=== PATIENT | female | born 1975 | race African-American/Black ===

== ENCOUNTER 2018-09-10 01:26 | Inpatient (IN) ==
[2018-09-10] MEDS ORDERED: ACETAMINOPHEN 500 MG TABLET PO STA (01:50)
[2018-09-10] MEDS ORDERED: SODIUM CHLORIDE 0.9% 1,000 ML IV STA ×3 (01:50→02:45)
[2018-09-10 02:21] LABS: Basophils # 0.1 10*3/uL (0.0-0.2); Basophils % 0.3 % (0.0-0.8); Eosinophils % 0.1 % (0.00-10.9); Hematocrit 36.9 VOL% (35.7-47.0); Hemoglobin 11.8 GM/DL (12.0-16.0); Immature Granulocytes % 1.1 %; Immature Granulocytes Absolute 0.26 #; Lymphocytes # 2.3 10*3/uL (1.4-4.0); Mean Corpuscular Hemoglobin 28 PG (27-34); Mean Corpuscular Volume 88.3 FL (87-102); Mean Platelet Volume 11.5 FL (9.6-12.0); Monocytes # 1.8 10*3/uL (0.11-0.8); Monocytes % 7.7 % (1.7-12.7); Neutrophils # 18.6 10*3/uL (1.4-7.4); Neutrophils % 80.8 % (38.7-73.9); Platelet Count 184 T/CUMM (130-400); Red Blood Count 4.18 MC/CUMM (3.8-5.5); Red Cell Distribution Width 13.2 % (9.3-17.3)
[2018-09-10 02:41] LABS: Alanine Aminotransferase 10 U/L (13-56); Albumin 2.5 G/DL (3.4-5.0); Alkaline Phosphatase 71 U/L (45-117); Aspartate Amino Transferase 15 U/L (0-37); Blood Urea Nitrogen 10 MG/DL (7-18); Calcium 8.3 MG/DL (8.5-10.1); Glucose 344 MG/DL (74-106); Osmolality,Calculated 276.5 MOS/KG (273-304); Potassium 3.5 MMOL/L (3.5-5.1); Sodium 132 MMOL/L (136-145); Total Protein 8.3 G/DL (6.4-8.3)
[2018-09-10] MEDS ORDERED: VANCOMYCIN INJ 1,000 MG in SODIUM CHLORIDE 0.9% 250 ML IV STA (02:43)
[2018-09-10] MEDS ORDERED: CEFEPIME 2,000 MG in SODIUM CHLORIDE 0.9% 100 ML IV STA (02:43)
[2018-09-10] MEDS ORDERED: CEFEPIME 2,000 MG VIAL ONE (03:21)
[2018-09-10 03:36] LABS: Amorphous Crystals,Urine Occasional /HPF (Few); Apearance,Urine Slightly Hazy (Clear); Bacteria,Urine Occasional /HPF (Few); Blood, Urine Moderate mg/dL (Negative); Glucose,Urine (UA) 150 mg/dL (Negative); Granular Casts,Urine 4 /LPF (0-1); Hyaline Casts,Urine 7 /LPF (0-3); Ketones,Urine 5 mg/dL (Negative); Mucus,Urine Occasional /LPF (Occasional); Nitrite,Urine Negative (Negative); Protein,Urine >=500 MG/DL; RBC,Urine 19 /HPF (0-4); Squamous Epithelial Cell,Urine Occasional /HPF (0-10); Urine Color Amber (Yellow); Urine Specific Gravity 1.028 (1.001-1.035); WBC,Urine 4 /HPF (0-6)
[2018-09-10 03:37] LABS: Bilirubin,Urine Small mg/dL (Negative)
[2018-09-10] MEDS ORDERED: DEXTROSE 50% 25 GM/50 ML VIAL IV PRN (03:52)
[2018-09-10] MEDS ORDERED: DOCUSATE SODIUM 100 MG CAPSULE PO PRN (03:52)
[2018-09-10] MEDS ORDERED: ACETAMINOPHEN 325 MG TABLET PO PRN (03:52)
[2018-09-10] MEDS ORDERED: GLUCAGON 1 MG VIAL IM PRN (03:52)
[2018-09-10] MEDS ORDERED: LEVOFLOXACIN INJ 750 MG in PREMIX 1 EACH IV SCH (04:00)
[2018-09-10] MEDS ORDERED: PIPERACILLIN/TAZOBACTAM 3,375 MG in SODIUM CHLORIDE 0.9% 100 ML IV SCH (04:00)
[2018-09-10] MEDS ORDERED: ALBUTEROL 2.5 MG/3 ML NEB RESP TX PRN (04:02)
[2018-09-10] MEDS ORDERED: DEXTROSE 50% 25 GM/50 ML SYRINGE IV PRN (04:30)
[2018-09-10] MEDS: SODIUM CHLORIDE 0.9% 1,000 ML IV SCH ×2 (05:00→17:20)
[2018-09-10] MEDS ORDERED: NON-FORMULARY MEDICATION (Albuterol Sulfate [Ventolin Hfa] 2 PUFF) INH PRN (05:01)
[2018-09-10] MEDS: LEVOFLOXACIN INJ 750 MG in PREMIX 1 EACH IV SCH (05:27)
[2018-09-10] MEDS: LIOTHYRONINE 25 MCG TABLET PO SCH (05:29)
[2018-09-10] MEDS: ALBUTEROL/IPRATROPIUM 3 ML NEB RESP TX SCH ×3 (07:51→20:48)
[2018-09-10] MEDS ORDERED: INFLUENZA VIRUS VACCINE 0.5 ML SYRINGE IM ONE (08:21)
[2018-09-10] MEDS: PIPERACILLIN/TAZOBACTAM 3,375 MG in SODIUM CHLORIDE 0.9% 100 ML IV SCH ×3 (09:36→21:59)
[2018-09-10] MEDS: INSULIN REGULAR 100 UNIT/ML SUBCUT SCH ×4 (09:40→21:51)
[2018-09-10] MEDS: CARVEDILOL 25 MG TABLET PO SCH ×2 (09:42→18:03)
[2018-09-10] MEDS: GLIMEPIRIDE 4 MG TABLET PO SCH ×2 (09:42→18:03)
[2018-09-10] MEDS: INSULIN ASPART PROTAMINE/ASPART 70/30 100 UNIT/ML SUBCUT SCH ×2 (09:42→18:04)
[2018-09-10] MEDS: ASPIRIN EC 325 MG TABLET PO SCH (09:43)
[2018-09-10] MEDS: ATORVASTATIN 20 MG TABLET PO SCH (09:43)
[2018-09-10] MEDS: ENOXAPARIN 40 MG/0.4 ML SYRINGE SUBCUT SCH (09:43)
[2018-09-10] MEDS: FUROSEMIDE 40 MG TABLET PO SCH ×2 (09:43→21:51)
[2018-09-10] MEDS: LISINOPRIL 20 MG TABLET PO SCH (09:44)
[2018-09-10] MEDS: MONTELUKAST 10 MG TABLET PO SCH (09:44)
[2018-09-10] MEDS: PANTOPRAZOLE 40 MG TABLET PO SCH (09:44)
[2018-09-10] MEDS: GABAPENTIN 600 MG TABLET PO SCH ×3 (09:44→21:51)
[2018-09-10] MEDS: CHOLECALCIFEROL 1,000 UNIT TABLET PO SCH (09:45)
[2018-09-10] MEDS: FLUTICASONE 50 MCG NASAL SPRAY 16 GM BOTTLE BOTH NARES SCH ×2 (09:58→21:54)
[2018-09-10] MEDS: VANCOMYCIN INJ 2,500 MG in SODIUM CHLORIDE 0.9% 500 ML IV SCH (18:55)
[2018-09-10] MEDS: GENTAMICIN 0.1% CREAM 15 GM TUBE TOP SCH (19:35)
[2018-09-10] MEDS: SKIN HEALING OINT (AQUAPHOR) 50 GM TUBE TOP SCH (19:35)
[2018-09-11] MEDS: ALBUTEROL/IPRATROPIUM 3 ML NEB RESP TX SCH ×4 (02:39→20:34)
[2018-09-11] MEDS: LIOTHYRONINE 25 MCG TABLET PO SCH (05:34)
[2018-09-11] MEDS: LEVOFLOXACIN INJ 750 MG in PREMIX 1 EACH IV SCH (05:34)
[2018-09-11 05:44] LABS: Basophils # 0.1 10*3/uL (0.0-0.2); Basophils % 0.4 % (0.0-0.8); Eosinophils # 0.3 10*3/uL (0.0-0.87); Eosinophils % 1.7 % (0.00-10.9); Hematocrit 36.3 VOL% (35.7-47.0); Hemoglobin 11.3 GM/DL (12.0-16.0); Immature Granulocytes % 0.5 %; Immature Granulocytes Absolute 0.08 #; Lymphocytes # 1.9 10*3/uL (1.4-4.0); Lymphocytes % 11.8 % (21.3-54.2); Mean Corpuscular HGB Conc 31.1 GM/DL (32-36); Mean Corpuscular Hemoglobin 28 PG (27-34); Mean Corpuscular Volume 90.1 FL (87-102); Mean Platelet Volume 11.4 FL (9.6-12.0); Monocytes # 1.6 10*3/uL (0.11-0.8); Monocytes % 10.2 % (1.7-12.7); Neutrophils # 11.9 10*3/uL (1.4-7.4); Neutrophils % 75.4 % (38.7-73.9); Platelet Count 170 T/CUMM (130-400); Red Blood Count 4.03 MC/CUMM (3.8-5.5); Red Cell Distribution Width 13.4 % (9.3-17.3); White Blood Count 15.7 T/CUMM (4-12)
[2018-09-11 06:02] LABS: Potassium 3.9 MMOL/L (3.5-5.1)
[2018-09-11] MEDS: SODIUM CHLORIDE 0.9% 1,000 ML IV SCH ×2 (06:10→20:16)
[2018-09-11] MEDS: VANCOMYCIN INJ 2,500 MG in SODIUM CHLORIDE 0.9% 500 ML IV SCH ×2 (07:10→21:14)
[2018-09-11] MEDS: INSULIN REGULAR 100 UNIT/ML SUBCUT SCH ×4 (07:13→20:16)
[2018-09-11] MEDS: GLIMEPIRIDE 4 MG TABLET PO SCH ×2 (09:22→17:01)
[2018-09-11] MEDS: CARVEDILOL 25 MG TABLET PO SCH ×2 (09:23→17:01)
[2018-09-11] MEDS: FLUTICASONE 50 MCG NASAL SPRAY 16 GM BOTTLE BOTH NARES SCH ×2 (09:24→21:11)
[2018-09-11] MEDS: FUROSEMIDE 40 MG TABLET PO SCH ×2 (09:24→21:12)
[2018-09-11] MEDS: ASPIRIN EC 325 MG TABLET PO SCH (09:24)
[2018-09-11] MEDS: INSULIN ASPART PROTAMINE/ASPART 70/30 100 UNIT/ML SUBCUT SCH ×2 (09:24→17:03)
[2018-09-11] MEDS: ENOXAPARIN 40 MG/0.4 ML SYRINGE SUBCUT SCH (09:25)
[2018-09-11] MEDS: MONTELUKAST 10 MG TABLET PO SCH (09:25)
[2018-09-11] MEDS: LISINOPRIL 20 MG TABLET PO SCH (09:25)
[2018-09-11] MEDS: GABAPENTIN 600 MG TABLET PO SCH ×3 (09:25→21:13)
[2018-09-11] MEDS: PANTOPRAZOLE 40 MG TABLET PO SCH (09:25)
[2018-09-11] MEDS: ATORVASTATIN 20 MG TABLET PO SCH (09:25)
[2018-09-11] MEDS: CHOLECALCIFEROL 1,000 UNIT TABLET PO SCH (09:26)
[2018-09-11] MEDS: PIPERACILLIN/TAZOBACTAM 3,375 MG in SODIUM CHLORIDE 0.9% 100 ML IV SCH (12:17)
[2018-09-11] MEDS: DOCUSATE SODIUM 100 MG CAPSULE PO SCH (21:11)
[2018-09-12] MEDS: ALBUTEROL/IPRATROPIUM 3 ML NEB RESP TX SCH ×4 (00:35→20:16)
[2018-09-12] MEDS: PIPERACILLIN/TAZOBACTAM 3,375 MG in SODIUM CHLORIDE 0.9% 100 ML IV SCH ×3 (02:36→21:30)
[2018-09-12] MEDS: SODIUM CHLORIDE 0.9% 1,000 ML IV SCH ×3 (04:19→20:18)
[2018-09-12 05:09] LABS: Basophils # 0.1 10*3/uL (0.0-0.2); Basophils % 0.6 % (0.0-0.8); Eosinophils # 0.2 10*3/uL (0.0-0.87); Eosinophils % 1.2 % (0.00-10.9); Hematocrit 33.5 VOL% (35.7-47.0); Hemoglobin 10.6 GM/DL (12.0-16.0); Immature Granulocytes % 0.5 %; Immature Granulocytes Absolute 0.06 #; Lymphocytes # 3.1 10*3/uL (1.4-4.0); Lymphocytes % 24.6 % (21.3-54.2); Mean Corpuscular HGB Conc 31.6 GM/DL (32-36); Mean Corpuscular Hemoglobin 29 PG (27-34); Mean Corpuscular Volume 90.3 FL (87-102); Mean Platelet Volume 11.5 FL (9.6-12.0); Monocytes # 1.5 10*3/uL (0.11-0.8); Monocytes % 11.9 % (1.7-12.7); Neutrophils # 7.6 10*3/uL (1.4-7.4); Neutrophils % 61.2 % (38.7-73.9); Platelet Count 195 T/CUMM (130-400); Red Blood Count 3.71 MC/CUMM (3.8-5.5); Red Cell Distribution Width 13.5 % (9.3-17.3); White Blood Count 12.4 T/CUMM (4-12)
[2018-09-12 05:29] LABS: Potassium 3.7 MMOL/L (3.5-5.1)
[2018-09-12] MEDS: LIOTHYRONINE 25 MCG TABLET PO SCH (05:40)
[2018-09-12] MEDS: LEVOFLOXACIN INJ 750 MG in PREMIX 1 EACH IV SCH (07:06)
[2018-09-12] MEDS: ENOXAPARIN 40 MG/0.4 ML SYRINGE SUBCUT SCH (08:40)
[2018-09-12] MEDS: PANTOPRAZOLE 40 MG TABLET PO SCH (08:41)
[2018-09-12] MEDS: DOCUSATE SODIUM 100 MG CAPSULE PO SCH ×2 (08:41→21:52)
[2018-09-12] MEDS: LISINOPRIL 20 MG TABLET PO SCH (08:41)
[2018-09-12] MEDS: ATORVASTATIN 20 MG TABLET PO SCH (08:41)
[2018-09-12] MEDS: FUROSEMIDE 40 MG TABLET PO SCH ×2 (08:41→21:51)
[2018-09-12] MEDS: GLIMEPIRIDE 4 MG TABLET PO SCH ×2 (08:41→16:50)
[2018-09-12] MEDS: CHOLECALCIFEROL 1,000 UNIT TABLET PO SCH (08:41)
[2018-09-12] MEDS: CARVEDILOL 25 MG TABLET PO SCH ×2 (08:42→16:50)
[2018-09-12] MEDS: POLYETHYLENE GLYCOL POWDER 17 GM PACK PO SCH (08:42)
[2018-09-12] MEDS: MONTELUKAST 10 MG TABLET PO SCH (08:42)
[2018-09-12] MEDS: GABAPENTIN 600 MG TABLET PO SCH ×3 (08:42→21:52)
[2018-09-12] MEDS: FLUTICASONE 50 MCG NASAL SPRAY 16 GM BOTTLE BOTH NARES SCH ×2 (08:42→21:50)
[2018-09-12] MEDS: ASPIRIN EC 325 MG TABLET PO SCH (08:42)
[2018-09-12] MEDS: GENTAMICIN 0.1% CREAM 15 GM TUBE TOP SCH (08:43)
[2018-09-12] MEDS: SKIN HEALING OINT (AQUAPHOR) 50 GM TUBE TOP SCH (08:43)
[2018-09-12] MEDS: INSULIN REGULAR 100 UNIT/ML SUBCUT SCH ×4 (08:43→21:52)
[2018-09-12] MEDS: INSULIN ASPART PROTAMINE/ASPART 70/30 100 UNIT/ML SUBCUT SCH ×2 (08:43→16:49)
[2018-09-12] MEDS: VANCOMYCIN INJ 2,500 MG in SODIUM CHLORIDE 0.9% 500 ML IV SCH (10:12)
[2018-09-13] MEDS: ALBUTEROL/IPRATROPIUM 3 ML NEB RESP TX SCH ×4 (00:46→19:41)
[2018-09-13] MEDS: VANCOMYCIN INJ 2,500 MG in SODIUM CHLORIDE 0.9% 500 ML IV SCH ×2 (02:50→15:52)
[2018-09-13] MEDS: LEVOFLOXACIN INJ 750 MG in PREMIX 1 EACH IV SCH (03:15)
[2018-09-13] MEDS: SODIUM CHLORIDE 0.9% 1,000 ML IV SCH ×3 (04:51→20:03)
[2018-09-13] MEDS: LIOTHYRONINE 25 MCG TABLET PO SCH (06:29)
[2018-09-13] MEDS: PIPERACILLIN/TAZOBACTAM 3,375 MG in SODIUM CHLORIDE 0.9% 100 ML IV SCH ×2 (07:10→17:01)
[2018-09-13] MEDS: INSULIN REGULAR 100 UNIT/ML SUBCUT SCH ×4 (08:50→20:04)
[2018-09-13] MEDS: INSULIN ASPART PROTAMINE/ASPART 70/30 100 UNIT/ML SUBCUT SCH ×2 (09:57→17:40)
[2018-09-13] MEDS: CHOLECALCIFEROL 1,000 UNIT TABLET PO SCH (09:59)
[2018-09-13] MEDS: LISINOPRIL 20 MG TABLET PO SCH (10:00)
[2018-09-13] MEDS: ENOXAPARIN 40 MG/0.4 ML SYRINGE SUBCUT SCH (10:00)
[2018-09-13] MEDS: FUROSEMIDE 40 MG TABLET PO SCH ×2 (10:01→20:37)
[2018-09-13] MEDS: DOCUSATE SODIUM 100 MG CAPSULE PO SCH ×2 (10:01→20:38)
[2018-09-13] MEDS: PANTOPRAZOLE 40 MG TABLET PO SCH (10:01)
[2018-09-13] MEDS: GLIMEPIRIDE 4 MG TABLET PO SCH ×2 (10:02→17:40)
[2018-09-13] MEDS: GABAPENTIN 600 MG TABLET PO SCH ×3 (10:02→20:37)
[2018-09-13] MEDS: MONTELUKAST 10 MG TABLET PO SCH (10:02)
[2018-09-13] MEDS: ASPIRIN EC 325 MG TABLET PO SCH (10:02)
[2018-09-13] MEDS: FLUTICASONE 50 MCG NASAL SPRAY 16 GM BOTTLE BOTH NARES SCH ×2 (10:02→20:04)
[2018-09-13] MEDS: CARVEDILOL 25 MG TABLET PO SCH ×2 (10:02→17:40)
[2018-09-13] MEDS: POLYETHYLENE GLYCOL POWDER 17 GM PACK PO SCH (10:02)
[2018-09-13] MEDS: ATORVASTATIN 20 MG TABLET PO SCH (10:02)
[2018-09-13] MEDS ORDERED: ceFAZolin 2,000 MG in PREMIX 1 EACH IV ONE (12:00)
[2018-09-13] MEDS ORDERED: ALBUMIN 25% 25 GM/100 ML VIAL IV ONE (14:01)
[2018-09-13] MEDS ORDERED: DOPamine 800 MG/250 ML PREMIX IV ONE (14:01)
[2018-09-13] MEDS ORDERED: DOBUTamine 500 MG/250 ML PREMIX IV ONE (14:08)
[2018-09-13] MEDS ORDERED: PROPOFOL 1,000 MG/100 ML BOTTLE IV ONE (14:51)
[2018-09-13] MEDS ORDERED: SEVOFLURANE 1 UNIT/15 MINUTE INH ONE (15:41)
[2018-09-13] MEDS ORDERED: ePHEDrine 50 MG/ML AMP ONE (15:41)
[2018-09-13] MEDS ORDERED: VECURONIUM 10 MG VIAL IV ONE (15:41)
[2018-09-13] MEDS ORDERED: PHENYLEPHRINE 10 MG/1 ML VIAL IV ONE (15:41)
[2018-09-13] MEDS ORDERED: SUCCINYLCHOLINE 200 MG/10 ML VIAL ONE (15:41)
[2018-09-13] MEDS ORDERED: LACTATED RINGERS 1,000 ML IV ONE (15:41)
[2018-09-13] MEDS ORDERED: PROPOFOL 200 MG/20 ML VIAL IV ONE (15:42)
[2018-09-13] MEDS ORDERED: HEPARIN/NACL 0.9% 2 UNITS/ML 500 ML IV ONE (15:42)
[2018-09-13] MEDS ORDERED: SODIUM CHLORIDE 0.9% 1,000 ML IV ONE (15:42)
[2018-09-13] MEDS: PROPOFOL 1,000 MG/100 ML BOTTLE IV SCH ×5 (16:00→22:58)
[2018-09-13 16:26] LABS: Basophils # 0.1 10*3/uL (0.0-0.2); Basophils % 0.7 % (0.0-0.8); Eosinophils # 0.1 10*3/uL (0.0-0.87); Eosinophils % 0.7 % (0.00-10.9); Hematocrit 31.8 VOL% (35.7-47.0); Hemoglobin 9.9 GM/DL (12.0-16.0); Immature Granulocytes % 0.8 %; Immature Granulocytes Absolute 0.08 #; Lymphocytes # 3.1 10*3/uL (1.4-4.0); Lymphocytes % 30.1 % (21.3-54.2); Mean Corpuscular HGB Conc 31.1 GM/DL (32-36); Mean Corpuscular Hemoglobin 28 PG (27-34); Mean Corpuscular Volume 90.9 FL (87-102); Monocytes # 1.2 10*3/uL (0.11-0.8); Monocytes % 11.8 % (1.7-12.7); Neutrophils # 5.7 10*3/uL (1.4-7.4); Neutrophils % 55.9 % (38.7-73.9); Platelet Count 184 T/CUMM (130-400); Red Cell Distribution Width 13.6 % (9.3-17.3); White Blood Count 10.2 T/CUMM (4-12)
[2018-09-13 16:30] LABS: ABG Base Excess 1.5 MMOL/L (-2.5-2.5); ABG HCO3 25.8 MMOL/L (20-26); ABG Oxygen Saturation 99.9 % (95-100); ABG PCO2 40.4 MM HG (35-48); ABG PH 7.417 (7.35-7.45); ABG TCO2 22.8 MMOL/L (23-27)
[2018-09-13 16:50] LABS: Osmolality,Calculated 267.4 MOS/KG (273-304); Potassium 3.7 MMOL/L (3.5-5.1)
[2018-09-13] MEDS: HYDROmorphone 2 MG/1 ML VIAL IV PRN (17:02)
[2018-09-13] MEDS: cefTRIAXone 2,000 MG in SYRINGE 1 EACH IV SCH (18:10)
[2018-09-13 18:30] LABS: Hypochromasia Slight; Lymphocytes 24 % (20-55); Macrocytosis Slight; Platelet Estimate Adequate; Segmented Neutrophils 63 % (50-85); Total Cells Counted 100
[2018-09-13] MEDS: MORPHINE 4 MG/1 ML VIAL IV PRN (22:55)
[2018-09-14] MEDS: SODIUM CHLORIDE 0.9% 1,000 ML IV SCH ×4 (00:15→21:24)
[2018-09-14] MEDS: PROPOFOL 1,000 MG/100 ML BOTTLE IV SCH ×3 (01:25→05:58)
[2018-09-14] MEDS: ALBUTEROL/IPRATROPIUM 3 ML NEB RESP TX SCH ×4 (02:08→19:02)
[2018-09-14] MEDS: HYDROmorphone 2 MG/1 ML VIAL IV PRN (03:52)
[2018-09-14 04:24] LABS: ABG Base Excess 1.1 MMOL/L (-2.5-2.5); ABG HCO3 25.4 MMOL/L (20-26); ABG Oxygen Saturation 98.7 % (95-100); ABG PCO2 38.4 MM HG (35-48); ABG PH 7.427 (7.35-7.45); ABG TCO2 22.9 MMOL/L (23-27)
[2018-09-14 04:37] LABS: Basophils # 0.1 10*3/uL (0.0-0.2); Basophils % 0.3 % (0.0-0.8); Eosinophils # 0.2 10*3/uL (0.0-0.87); Hematocrit 31.7 VOL% (35.7-47.0); Hemoglobin 9.8 GM/DL (12.0-16.0); Immature Granulocytes % 0.7 %; Lymphocytes # 1.8 10*3/uL (1.4-4.0); Lymphocytes % 12.2 % (21.3-54.2); Mean Corpuscular HGB Conc 30.9 GM/DL (32-36); Mean Corpuscular Hemoglobin 28 PG (27-34); Mean Corpuscular Volume 89.5 FL (87-102); Mean Platelet Volume 11.4 FL (9.6-12.0); Monocytes # 1.3 10*3/uL (0.11-0.8); Monocytes % 9.4 % (1.7-12.7); Neutrophils # 10.9 10*3/uL (1.4-7.4); Neutrophils % 76.4 % (38.7-73.9); Platelet Count 187 T/CUMM (130-400); Red Blood Count 3.54 MC/CUMM (3.8-5.5); Red Cell Distribution Width 13.5 % (9.3-17.3); White Blood Count 14.3 T/CUMM (4-12)
[2018-09-14 05:02] LABS: Calcium 7.8 MG/DL (8.5-10.1); Osmolality,Calculated 278.5 MOS/KG (273-304); Potassium 3.4 MMOL/L (3.5-5.1)
[2018-09-14] MEDS: LIOTHYRONINE 25 MCG TABLET PO SCH (07:06)
[2018-09-14] MEDS: MONTELUKAST 10 MG TABLET PO SCH (08:06)
[2018-09-14] MEDS: LISINOPRIL 20 MG TABLET PO SCH (08:06)
[2018-09-14] MEDS: GABAPENTIN 600 MG TABLET PO SCH ×3 (08:07→20:05)
[2018-09-14] MEDS: CARVEDILOL 25 MG TABLET PO SCH ×2 (08:07→17:29)
[2018-09-14] MEDS: ENOXAPARIN 40 MG/0.4 ML SYRINGE SUBCUT SCH (08:07)
[2018-09-14] MEDS: PANTOPRAZOLE 40 MG TABLET PO SCH (08:07)
[2018-09-14] MEDS: FUROSEMIDE 40 MG TABLET PO SCH ×2 (08:07→20:06)
[2018-09-14] MEDS: CHOLECALCIFEROL 1,000 UNIT TABLET PO SCH (08:07)
[2018-09-14] MEDS: ATORVASTATIN 20 MG TABLET PO SCH (08:07)
[2018-09-14] MEDS: INSULIN REGULAR 100 UNIT/ML SUBCUT SCH ×4 (08:08→20:05)
[2018-09-14] MEDS: ASPIRIN EC 325 MG TABLET PO SCH (08:08)
[2018-09-14] MEDS: GLIMEPIRIDE 4 MG TABLET PO SCH ×2 (08:08→17:55)
[2018-09-14] MEDS: INSULIN ASPART PROTAMINE/ASPART 70/30 100 UNIT/ML SUBCUT SCH ×2 (08:08→17:55)
[2018-09-14] MEDS ORDERED: MAGNESIUM SULF RIDER 2 GM in PREMIX 1 EACH IV ONE (09:15)
[2018-09-14] MEDS ORDERED: POTASSIUM CHLORIDE 20 MEQ/15 ML UDCUP PER TUBE ONE (09:17)
[2018-09-14] MEDS: hydrALAZINE 20 MG/1 ML VIAL IV PRN (09:30)
[2018-09-14] MEDS: DOCUSATE SODIUM 100 MG CAPSULE PO SCH ×2 (09:51→20:05)
[2018-09-14] MEDS: POLYETHYLENE GLYCOL POWDER 17 GM PACK PO SCH (09:51)
[2018-09-14] MEDS: FLUTICASONE 50 MCG NASAL SPRAY 16 GM BOTTLE BOTH NARES SCH ×2 (10:02→20:06)
[2018-09-14 10:03] LABS: ABG Base Excess 0.4 MMOL/L (-2.5-2.5); ABG HCO3 24.7 MMOL/L (20-26); ABG Oxygen Saturation 98.1 % (95-100); ABG PCO2 47.4 MM HG (35-48); ABG PH 7.354 (7.35-7.45); ABG TCO2 23.7 MMOL/L (23-27)
[2018-09-14] MEDS: cefTRIAXone 2,000 MG in SYRINGE 1 EACH IV SCH (17:29)
[2018-09-15] MEDS: ALBUTEROL/IPRATROPIUM 3 ML NEB RESP TX SCH ×4 (00:33→19:02)
[2018-09-15] MEDS ORDERED: LACTULOSE 20 GM/30 ML UDCUP PO ONE (00:43)
[2018-09-15 04:32] LABS: Basophils # 0.1 10*3/uL (0.0-0.2); Basophils % 0.3 % (0.0-0.8); Eosinophils # 0.1 10*3/uL (0.0-0.87); Eosinophils % 0.5 % (0.00-10.9); Hemoglobin 11.6 GM/DL (12.0-16.0); Immature Granulocytes % 1.1 %; Immature Granulocytes Absolute 0.24 #; Lymphocytes % 8.8 % (21.3-54.2); Mean Corpuscular HGB Conc 30.5 GM/DL (32-36); Mean Corpuscular Hemoglobin 28 PG (27-34); Mean Corpuscular Volume 91.1 FL (87-102); Mean Platelet Volume 11.1 FL (9.6-12.0); Monocytes # 1.4 10*3/uL (0.11-0.8); Monocytes % 6.5 % (1.7-12.7); Neutrophils # 18.3 10*3/uL (1.4-7.4); Neutrophils % 82.8 % (38.7-73.9); Platelet Count 264 T/CUMM (130-400); Red Blood Count 4.17 MC/CUMM (3.8-5.5); Red Cell Distribution Width 13.8 % (9.3-17.3); White Blood Count 22.1 T/CUMM (4-12)
[2018-09-15] MEDS: SODIUM CHLORIDE 0.9% 1,000 ML IV SCH ×3 (04:42→19:13)
[2018-09-15 04:57] LABS: Calcium 8.3 MG/DL (8.5-10.1); Osmolality,Calculated 283.5 MOS/KG (273-304); Potassium 4.2 MMOL/L (3.5-5.1)
[2018-09-15 05:00] LABS: Hypochromasia Slight; Platelet Estimate Normal
[2018-09-15] MEDS: LIOTHYRONINE 25 MCG TABLET PO SCH (06:38)
[2018-09-15] MEDS: ENOXAPARIN 40 MG/0.4 ML SYRINGE SUBCUT SCH (09:35)
[2018-09-15] MEDS: FLUTICASONE 50 MCG NASAL SPRAY 16 GM BOTTLE BOTH NARES SCH ×2 (09:35→21:30)
[2018-09-15] MEDS: INSULIN ASPART PROTAMINE/ASPART 70/30 100 UNIT/ML SUBCUT SCH ×2 (09:36→18:02)
[2018-09-15] MEDS: FUROSEMIDE 40 MG TABLET PO SCH ×2 (09:39→21:30)
[2018-09-15] MEDS: MONTELUKAST 10 MG TABLET PO SCH (09:40)
[2018-09-15] MEDS: ATORVASTATIN 20 MG TABLET PO SCH (09:40)
[2018-09-15] MEDS: LISINOPRIL 20 MG TABLET PO SCH (09:40)
[2018-09-15] MEDS: CHOLECALCIFEROL 1,000 UNIT TABLET PO SCH (09:40)
[2018-09-15] MEDS: GABAPENTIN 600 MG TABLET PO SCH ×3 (09:40→21:30)
[2018-09-15] MEDS: ASPIRIN EC 325 MG TABLET PO SCH (09:41)
[2018-09-15] MEDS: SKIN HEALING OINT (AQUAPHOR) 50 GM TUBE TOP SCH ×2 (09:41→13:45)
[2018-09-15] MEDS: CARVEDILOL 25 MG TABLET PO SCH ×2 (09:41→18:03)
[2018-09-15] MEDS: GLIMEPIRIDE 4 MG TABLET PO SCH ×2 (09:41→18:03)
[2018-09-15] MEDS: INSULIN REGULAR 100 UNIT/ML SUBCUT SCH ×4 (09:56→21:30)
[2018-09-15] MEDS: DOCUSATE SODIUM 100 MG CAPSULE PO SCH ×2 (09:57→21:30)
[2018-09-15] MEDS: GENTAMICIN 0.1% CREAM 15 GM TUBE TOP SCH ×2 (09:57→13:45)
[2018-09-15] MEDS: POLYETHYLENE GLYCOL POWDER 17 GM PACK PO SCH (10:01)
[2018-09-15] MEDS: PANTOPRAZOLE 40 MG TABLET PO SCH (10:02)
[2018-09-15] MEDS: ONDANSETRON 4 MG/2 ML VIAL IV PRN (18:02)
[2018-09-15] MEDS ORDERED: PANTOPRAZOLE 40 MG VIAL IV ONE (20:44)
[2018-09-15] MEDS: cefTRIAXone 2,000 MG in SYRINGE 1 EACH IV SCH (21:36)
[2018-09-16] MEDS: ALBUTEROL/IPRATROPIUM 3 ML NEB RESP TX SCH ×4 (00:41→20:05)
[2018-09-16] MEDS: SODIUM CHLORIDE 0.9% 1,000 ML IV SCH ×3 (04:20→21:53)
[2018-09-16 05:15] LABS: Basophils % 0.2 % (0.0-0.8); Eosinophils # 0.1 10*3/uL (0.0-0.87); Eosinophils % 0.5 % (0.00-10.9); Hematocrit 39.8 VOL% (35.7-47.0); Hemoglobin 12.1 GM/DL (12.0-16.0); Immature Granulocytes Absolute 0.21 #; Lymphocytes # 1.6 10*3/uL (1.4-4.0); Lymphocytes % 7.8 % (21.3-54.2); Mean Corpuscular HGB Conc 30.4 GM/DL (32-36); Mean Corpuscular Hemoglobin 28 PG (27-34); Mean Corpuscular Volume 92.1 FL (87-102); Mean Platelet Volume 11.2 FL (9.6-12.0); Monocytes # 1.5 10*3/uL (0.11-0.8); Monocytes % 7.4 % (1.7-12.7); Neutrophils # 16.8 10*3/uL (1.4-7.4); Neutrophils % 83.1 % (38.7-73.9); Platelet Count 299 T/CUMM (130-400); Red Blood Count 4.32 MC/CUMM (3.8-5.5); Red Cell Distribution Width 13.9 % (9.3-17.3); White Blood Count 20.2 T/CUMM (4-12)
[2018-09-16 05:26] LABS: Calcium 8.6 MG/DL (8.5-10.1); Osmolality,Calculated 279.8 MOS/KG (273-304); Potassium 4.3 MMOL/L (3.5-5.1)
[2018-09-16] MEDS: LIOTHYRONINE 25 MCG TABLET PO SCH (05:41)
[2018-09-16 05:48] LABS: Band Neutrophils 1 % (0-10); Eosinophils 1 % (0-10); Hypochromasia 1+; Lymphocytes 6 % (20-55); Platelet Estimate Adequate; Segmented Neutrophils 84 % (50-85); Total Cells Counted 100
[2018-09-16] MEDS: ENOXAPARIN 40 MG/0.4 ML SYRINGE SUBCUT SCH (08:56)
[2018-09-16] MEDS: LISINOPRIL 20 MG TABLET PO SCH (08:57)
[2018-09-16] MEDS: ONDANSETRON 4 MG/2 ML VIAL IV PRN (08:57)
[2018-09-16] MEDS: PANTOPRAZOLE 40 MG TABLET PO SCH ×2 (08:57→21:42)
[2018-09-16] MEDS: INSULIN ASPART PROTAMINE/ASPART 70/30 100 UNIT/ML SUBCUT SCH ×2 (08:58→17:00)
[2018-09-16] MEDS: POLYETHYLENE GLYCOL POWDER 17 GM PACK PO SCH (08:58)
[2018-09-16] MEDS: GABAPENTIN 600 MG TABLET PO SCH ×3 (08:59→21:40)
[2018-09-16] MEDS: FUROSEMIDE 40 MG TABLET PO SCH ×2 (08:59→21:42)
[2018-09-16] MEDS: DOCUSATE SODIUM 100 MG CAPSULE PO SCH ×2 (08:59→21:41)
[2018-09-16] MEDS: ATORVASTATIN 20 MG TABLET PO SCH (08:59)
[2018-09-16] MEDS: MONTELUKAST 10 MG TABLET PO SCH (08:59)
[2018-09-16] MEDS: CHOLECALCIFEROL 1,000 UNIT TABLET PO SCH (09:00)
[2018-09-16] MEDS: INSULIN REGULAR 100 UNIT/ML SUBCUT SCH ×4 (09:00→21:53)
[2018-09-16] MEDS: GENTAMICIN 0.1% CREAM 15 GM TUBE TOP SCH (09:00)
[2018-09-16] MEDS: SKIN HEALING OINT (AQUAPHOR) 50 GM TUBE TOP SCH (09:00)
[2018-09-16] MEDS: GLIMEPIRIDE 4 MG TABLET PO SCH ×2 (09:00→18:00)
[2018-09-16] MEDS: CARVEDILOL 25 MG TABLET PO SCH ×2 (09:00→17:30)
[2018-09-16] MEDS: ASPIRIN EC 325 MG TABLET PO SCH (09:00)
[2018-09-16] MEDS: FLUTICASONE 50 MCG NASAL SPRAY 16 GM BOTTLE BOTH NARES SCH ×2 (09:20→21:42)
[2018-09-16] MEDS: cefTRIAXone 2,000 MG in SYRINGE 1 EACH IV SCH (14:32)
[2018-09-17] MEDS: ALBUTEROL/IPRATROPIUM 3 ML NEB RESP TX SCH ×4 (01:26→19:45)
[2018-09-17] MEDS: SODIUM CHLORIDE 0.9% 1,000 ML IV SCH ×3 (05:58→23:23)
[2018-09-17] MEDS: LIOTHYRONINE 25 MCG TABLET PO SCH (06:10)
[2018-09-17 06:36] LABS: Basophils % 0.3 % (0.0-0.8); Eosinophils # 0.4 10*3/uL (0.0-0.87); Eosinophils % 2.3 % (0.00-10.9); Hematocrit 38.1 VOL% (35.7-47.0); Hemoglobin 11.5 GM/DL (12.0-16.0); Immature Granulocytes Absolute 0.16 #; Lymphocytes # 1.7 10*3/uL (1.4-4.0); Mean Corpuscular HGB Conc 30.2 GM/DL (32-36); Mean Corpuscular Hemoglobin 28 PG (27-34); Mean Corpuscular Volume 93.8 FL (87-102); Mean Platelet Volume 11.3 FL (9.6-12.0); Monocytes # 1.4 10*3/uL (0.11-0.8); Monocytes % 9.3 % (1.7-12.7); Neutrophils # 11.6 10*3/uL (1.4-7.4); Neutrophils % 76.1 % (38.7-73.9); Platelet Count 273 T/CUMM (130-400); Red Blood Count 4.06 MC/CUMM (3.8-5.5); White Blood Count 15.2 T/CUMM (4-12)
[2018-09-17 06:39] LABS: Calcium 8.2 MG/DL (8.5-10.1); Osmolality,Calculated 284.5 MOS/KG (273-304); Potassium 4.4 MMOL/L (3.5-5.1)
[2018-09-17] MEDS: INSULIN REGULAR 100 UNIT/ML SUBCUT SCH ×4 (08:20→21:52)
[2018-09-17] MEDS: ASPIRIN EC 325 MG TABLET PO SCH (10:12)
[2018-09-17] MEDS: GABAPENTIN 600 MG TABLET PO SCH ×3 (10:12→21:56)
[2018-09-17] MEDS: MONTELUKAST 10 MG TABLET PO SCH (10:12)
[2018-09-17] MEDS: LISINOPRIL 20 MG TABLET PO SCH (10:12)
[2018-09-17] MEDS: CHOLECALCIFEROL 1,000 UNIT TABLET PO SCH (10:12)
[2018-09-17] MEDS: FUROSEMIDE 40 MG TABLET PO SCH ×2 (10:12→21:57)
[2018-09-17] MEDS: CARVEDILOL 25 MG TABLET PO SCH ×2 (10:13→16:13)
[2018-09-17] MEDS: POLYETHYLENE GLYCOL POWDER 17 GM PACK PO SCH (10:13)
[2018-09-17] MEDS: SKIN HEALING OINT (AQUAPHOR) 50 GM TUBE TOP SCH (10:13)
[2018-09-17] MEDS: ATORVASTATIN 20 MG TABLET PO SCH (10:13)
[2018-09-17] MEDS: FLUTICASONE 50 MCG NASAL SPRAY 16 GM BOTTLE BOTH NARES SCH ×2 (10:13→21:56)
[2018-09-17] MEDS: PANTOPRAZOLE 40 MG TABLET PO SCH ×2 (10:13→21:56)
[2018-09-17] MEDS: DOCUSATE SODIUM 100 MG CAPSULE PO SCH ×2 (10:13→21:56)
[2018-09-17] MEDS: GENTAMICIN 0.1% CREAM 15 GM TUBE TOP SCH (10:13)
[2018-09-17] MEDS: ENOXAPARIN 40 MG/0.4 ML SYRINGE SUBCUT SCH (10:13)
[2018-09-17] MEDS: GLIMEPIRIDE 4 MG TABLET PO SCH ×2 (11:17→16:13)
[2018-09-17] MEDS: INSULIN ASPART PROTAMINE/ASPART 70/30 100 UNIT/ML SUBCUT SCH ×2 (11:18→16:58)
[2018-09-17] MEDS: cefTRIAXone 2,000 MG in SYRINGE 1 EACH IV SCH (15:23)
[2018-09-18] MEDS: ALBUTEROL/IPRATROPIUM 3 ML NEB RESP TX SCH ×4 (00:41→19:54)
[2018-09-18 05:09] LABS: Basophils % 0.3 % (0.0-0.8); Eosinophils # 0.4 10*3/uL (0.0-0.87); Eosinophils % 2.8 % (0.00-10.9); Hematocrit 36.5 VOL% (35.7-47.0); Immature Granulocytes Absolute 0.13 #; Lymphocytes # 1.8 10*3/uL (1.4-4.0); Lymphocytes % 14.3 % (21.3-54.2); Mean Corpuscular HGB Conc 29.3 GM/DL (32-36); Mean Corpuscular Hemoglobin 28 PG (27-34); Mean Corpuscular Volume 93.8 FL (87-102); Mean Platelet Volume 10.8 FL (9.6-12.0); Monocytes # 1.3 10*3/uL (0.11-0.8); Monocytes % 10.2 % (1.7-12.7); Neutrophils % 71.4 % (38.7-73.9); Platelet Count 292 T/CUMM (130-400); Red Blood Count 3.89 MC/CUMM (3.8-5.5); Red Cell Distribution Width 13.9 % (9.3-17.3); White Blood Count 12.6 T/CUMM (4-12)
[2018-09-18 05:23] LABS: Hemoglobin 11.1 GM/DL (12.0-16.0)
[2018-09-18 05:24] LABS: Calcium 8.5 MG/DL (8.5-10.1); Osmolality,Calculated 283.5 MOS/KG (273-304); Potassium 4.1 MMOL/L (3.5-5.1)
[2018-09-18] MEDS: LIOTHYRONINE 25 MCG TABLET PO SCH (06:08)
[2018-09-18] MEDS: SODIUM CHLORIDE 0.9% 1,000 ML IV SCH (07:24)
[2018-09-18] MEDS: INSULIN REGULAR 100 UNIT/ML SUBCUT SCH ×4 (08:17→21:58)
[2018-09-18] MEDS: hydrALAZINE 20 MG/1 ML VIAL IV PRN (08:51)
[2018-09-18] MEDS: ENOXAPARIN 40 MG/0.4 ML SYRINGE SUBCUT SCH (08:51)
[2018-09-18] MEDS: ATORVASTATIN 20 MG TABLET PO SCH (08:52)
[2018-09-18] MEDS: LISINOPRIL 20 MG TABLET PO SCH (08:52)
[2018-09-18] MEDS: POLYETHYLENE GLYCOL POWDER 17 GM PACK PO SCH (08:52)
[2018-09-18] MEDS: GABAPENTIN 600 MG TABLET PO SCH ×3 (08:52→21:57)
[2018-09-18] MEDS: CARVEDILOL 25 MG TABLET PO SCH ×2 (08:52→17:39)
[2018-09-18] MEDS: PANTOPRAZOLE 40 MG TABLET PO SCH ×2 (08:52→21:57)
[2018-09-18] MEDS: MONTELUKAST 10 MG TABLET PO SCH (08:52)
[2018-09-18] MEDS: FUROSEMIDE 40 MG TABLET PO SCH ×2 (08:52→21:57)
[2018-09-18] MEDS: DOCUSATE SODIUM 100 MG CAPSULE PO SCH ×2 (08:53→21:57)
[2018-09-18] MEDS: INSULIN ASPART PROTAMINE/ASPART 70/30 100 UNIT/ML SUBCUT SCH ×2 (08:53→17:39)
[2018-09-18] MEDS: ASPIRIN EC 325 MG TABLET PO SCH (08:53)
[2018-09-18] MEDS: GLIMEPIRIDE 4 MG TABLET PO SCH ×2 (08:53→17:39)
[2018-09-18] MEDS: SKIN HEALING OINT (AQUAPHOR) 50 GM TUBE TOP SCH (08:53)
[2018-09-18] MEDS: CHOLECALCIFEROL 1,000 UNIT TABLET PO SCH (08:53)
[2018-09-18] MEDS: GENTAMICIN 0.1% CREAM 15 GM TUBE TOP SCH (08:54)
[2018-09-18] MEDS: FLUTICASONE 50 MCG NASAL SPRAY 16 GM BOTTLE BOTH NARES SCH ×2 (08:54→21:59)
[2018-09-18] MEDS: cefTRIAXone 2,000 MG in SYRINGE 1 EACH IV SCH (14:50)
[2018-09-19] MEDS: ALBUTEROL/IPRATROPIUM 3 ML NEB RESP TX SCH ×4 (00:36→19:40)
[2018-09-19 04:39] LABS: Basophils % 0.4 % (0.0-0.8); Eosinophils # 0.3 10*3/uL (0.0-0.87); Hematocrit 37.6 VOL% (35.7-47.0); Hemoglobin 11.3 GM/DL (12.0-16.0); Immature Granulocytes % 1.2 %; Immature Granulocytes Absolute 0.12 #; Lymphocytes # 2.1 10*3/uL (1.4-4.0); Mean Corpuscular HGB Conc 30.1 GM/DL (32-36); Mean Corpuscular Hemoglobin 28 PG (27-34); Mean Corpuscular Volume 92.4 FL (87-102); Mean Platelet Volume 10.7 FL (9.6-12.0); Monocytes # 1.1 10*3/uL (0.11-0.8); Monocytes % 11.6 % (1.7-12.7); Neutrophils # 6.1 10*3/uL (1.4-7.4); Neutrophils % 62.8 % (38.7-73.9); Platelet Count 285 T/CUMM (130-400); Red Blood Count 4.07 MC/CUMM (3.8-5.5); Red Cell Distribution Width 13.8 % (9.3-17.3); White Blood Count 9.8 T/CUMM (4-12)
[2018-09-19 05:10] LABS: Calcium 8.7 MG/DL (8.5-10.1); Osmolality,Calculated 280.8 MOS/KG (273-304)
[2018-09-19] MEDS: LIOTHYRONINE 25 MCG TABLET PO SCH (05:42)
[2018-09-19] MEDS: INSULIN REGULAR 100 UNIT/ML SUBCUT SCH ×4 (08:24→21:18)
[2018-09-19] MEDS: POLYETHYLENE GLYCOL POWDER 17 GM PACK PO SCH (08:25)
[2018-09-19] MEDS: LISINOPRIL 20 MG TABLET PO SCH (08:25)
[2018-09-19] MEDS: ENOXAPARIN 40 MG/0.4 ML SYRINGE SUBCUT SCH (08:25)
[2018-09-19] MEDS: FUROSEMIDE 40 MG TABLET PO SCH ×3 (08:25→21:20)
[2018-09-19] MEDS: DOCUSATE SODIUM 100 MG CAPSULE PO SCH ×3 (08:25→21:20)
[2018-09-19] MEDS: GABAPENTIN 600 MG TABLET PO SCH ×4 (08:26→21:20)
[2018-09-19] MEDS: GLIMEPIRIDE 4 MG TABLET PO SCH ×2 (08:26→17:21)
[2018-09-19] MEDS: CHOLECALCIFEROL 1,000 UNIT TABLET PO SCH (08:26)
[2018-09-19] MEDS: PANTOPRAZOLE 40 MG TABLET PO SCH ×3 (08:26→21:20)
[2018-09-19] MEDS: ATORVASTATIN 20 MG TABLET PO SCH (08:26)
[2018-09-19] MEDS: CARVEDILOL 25 MG TABLET PO SCH ×2 (08:26→17:21)
[2018-09-19] MEDS: ASPIRIN EC 325 MG TABLET PO SCH (08:27)
[2018-09-19] MEDS: MONTELUKAST 10 MG TABLET PO SCH (08:27)
[2018-09-19] MEDS: INSULIN ASPART PROTAMINE/ASPART 70/30 100 UNIT/ML SUBCUT SCH ×2 (08:27→17:21)
[2018-09-19] MEDS: FLUTICASONE 50 MCG NASAL SPRAY 16 GM BOTTLE BOTH NARES SCH ×3 (08:33→21:20)
[2018-09-19] MEDS: SKIN HEALING OINT (AQUAPHOR) 50 GM TUBE TOP SCH (08:33)
[2018-09-19] MEDS: GENTAMICIN 0.1% CREAM 15 GM TUBE TOP SCH (08:34)
[2018-09-19] MEDS: cefTRIAXone 2,000 MG in SYRINGE 1 EACH IV SCH (14:21)
[2018-09-20] MEDS: ALBUTEROL/IPRATROPIUM 3 ML NEB RESP TX SCH ×4 (00:10→19:21)
[2018-09-20] MEDS: hydrALAZINE 20 MG/1 ML VIAL IV PRN (00:43)
[2018-09-20 05:20] LABS: Basophils % 0.3 % (0.0-0.8); Eosinophils # 0.3 10*3/uL (0.0-0.87); Eosinophils % 3.2 % (0.00-10.9); Hematocrit 37.6 VOL% (35.7-47.0); Hemoglobin 11.2 GM/DL (12.0-16.0); Immature Granulocytes Absolute 0.11 #; Lymphocytes # 1.7 10*3/uL (1.4-4.0); Lymphocytes % 15.8 % (21.3-54.2); Mean Corpuscular HGB Conc 29.8 GM/DL (32-36); Mean Corpuscular Hemoglobin 28 PG (27-34); Mean Corpuscular Volume 93.1 FL (87-102); Mean Platelet Volume 10.9 FL (9.6-12.0); Monocytes % 9.2 % (1.7-12.7); Neutrophils # 7.5 10*3/uL (1.4-7.4); Neutrophils % 70.5 % (38.7-73.9); Platelet Count 288 T/CUMM (130-400); Red Blood Count 4.04 MC/CUMM (3.8-5.5); Red Cell Distribution Width 13.7 % (9.3-17.3); White Blood Count 10.7 T/CUMM (4-12)
[2018-09-20 05:51] LABS: Calcium 9.1 MG/DL (8.5-10.1); Osmolality,Calculated 277.7 MOS/KG (273-304); Potassium 3.7 MMOL/L (3.5-5.1)
[2018-09-20] MEDS: LIOTHYRONINE 25 MCG TABLET PO SCH (06:24)
[2018-09-20] MEDS: INSULIN REGULAR 100 UNIT/ML SUBCUT SCH ×4 (07:51→21:12)
[2018-09-20] MEDS: CARVEDILOL 25 MG TABLET PO SCH ×2 (09:07→17:39)
[2018-09-20] MEDS: GLIMEPIRIDE 4 MG TABLET PO SCH ×2 (09:07→17:39)
[2018-09-20] MEDS: ASPIRIN EC 325 MG TABLET PO SCH (09:08)
[2018-09-20] MEDS: FUROSEMIDE 40 MG TABLET PO SCH ×2 (09:08→21:11)
[2018-09-20] MEDS: INSULIN ASPART PROTAMINE/ASPART 70/30 100 UNIT/ML SUBCUT SCH ×2 (09:08→17:03)
[2018-09-20] MEDS: DOCUSATE SODIUM 100 MG CAPSULE PO SCH ×2 (09:08→21:11)
[2018-09-20] MEDS: ENOXAPARIN 40 MG/0.4 ML SYRINGE SUBCUT SCH (09:09)
[2018-09-20] MEDS: ATORVASTATIN 20 MG TABLET PO SCH (09:09)
[2018-09-20] MEDS: MONTELUKAST 10 MG TABLET PO SCH (09:10)
[2018-09-20] MEDS: GABAPENTIN 600 MG TABLET PO SCH ×3 (09:10→21:10)
[2018-09-20] MEDS: CHOLECALCIFEROL 1,000 UNIT TABLET PO SCH (09:10)
[2018-09-20] MEDS: POLYETHYLENE GLYCOL POWDER 17 GM PACK PO SCH (09:10)
[2018-09-20] MEDS: LISINOPRIL 20 MG TABLET PO SCH (09:10)
[2018-09-20] MEDS: PANTOPRAZOLE 40 MG TABLET PO SCH ×2 (10:08→21:11)
[2018-09-20] MEDS: FLUTICASONE 50 MCG NASAL SPRAY 16 GM BOTTLE BOTH NARES SCH ×2 (10:09→21:11)
[2018-09-20] MEDS: GENTAMICIN 0.1% CREAM 15 GM TUBE TOP SCH (10:11)
[2018-09-20] MEDS: ONDANSETRON 4 MG/2 ML VIAL IV PRN (11:21)
[2018-09-20] MEDS: MORPHINE 4 MG/1 ML VIAL IV PRN (13:06)
[2018-09-20] MEDS: cefTRIAXone 2,000 MG in SYRINGE 1 EACH IV SCH (16:12)
[2018-09-20] MEDS: SKIN HEALING OINT (AQUAPHOR) 50 GM TUBE TOP SCH (18:30)
[2018-09-21] MEDS: ALBUTEROL/IPRATROPIUM 3 ML NEB RESP TX SCH ×4 (00:36→19:39)
[2018-09-21] MEDS: LIOTHYRONINE 25 MCG TABLET PO SCH (05:46)
[2018-09-21] MEDS: INSULIN REGULAR 100 UNIT/ML SUBCUT SCH ×4 (07:30→21:04)
[2018-09-21] MEDS: GLIMEPIRIDE 4 MG TABLET PO SCH ×2 (09:00→17:29)
[2018-09-21] MEDS: INSULIN ASPART PROTAMINE/ASPART 70/30 100 UNIT/ML SUBCUT SCH ×2 (09:01→17:29)
[2018-09-21] MEDS: ASPIRIN EC 325 MG TABLET PO SCH (09:01)
[2018-09-21] MEDS: CARVEDILOL 25 MG TABLET PO SCH ×2 (09:01→17:28)
[2018-09-21] MEDS: DOCUSATE SODIUM 100 MG CAPSULE PO SCH ×2 (09:01→21:04)
[2018-09-21] MEDS: FUROSEMIDE 40 MG TABLET PO SCH ×2 (09:01→21:03)
[2018-09-21] MEDS: ENOXAPARIN 40 MG/0.4 ML SYRINGE SUBCUT SCH (09:02)
[2018-09-21] MEDS: LISINOPRIL 20 MG TABLET PO SCH (09:02)
[2018-09-21] MEDS: CHOLECALCIFEROL 1,000 UNIT TABLET PO SCH (09:03)
[2018-09-21] MEDS: MONTELUKAST 10 MG TABLET PO SCH (09:03)
[2018-09-21] MEDS: GABAPENTIN 600 MG TABLET PO SCH ×3 (09:03→21:03)
[2018-09-21] MEDS: POLYETHYLENE GLYCOL POWDER 17 GM PACK PO SCH (09:03)
[2018-09-21] MEDS: PANTOPRAZOLE 40 MG TABLET PO SCH ×2 (10:05→21:03)
[2018-09-21] MEDS: ATORVASTATIN 20 MG TABLET PO SCH (10:05)
[2018-09-21] MEDS: FLUTICASONE 50 MCG NASAL SPRAY 16 GM BOTTLE BOTH NARES SCH ×2 (10:07→21:04)
[2018-09-21] MEDS: GENTAMICIN 0.1% CREAM 15 GM TUBE TOP SCH (10:12)
[2018-09-21] MEDS: SKIN HEALING OINT (AQUAPHOR) 50 GM TUBE TOP SCH (11:25)
[2018-09-21] MEDS: ONDANSETRON 4 MG/2 ML VIAL IV PRN (13:14)
[2018-09-22] MEDS: ALBUTEROL/IPRATROPIUM 3 ML NEB RESP TX SCH ×4 (00:47→18:55)
[2018-09-22] MEDS: LIOTHYRONINE 25 MCG TABLET PO SCH (06:25)
[2018-09-22] MEDS: ENOXAPARIN 40 MG/0.4 ML SYRINGE SUBCUT SCH (09:06)
[2018-09-22] MEDS: DOCUSATE SODIUM 100 MG CAPSULE PO SCH ×2 (09:07→20:36)
[2018-09-22] MEDS: FUROSEMIDE 40 MG TABLET PO SCH ×2 (09:07→20:35)
[2018-09-22] MEDS: ASPIRIN EC 325 MG TABLET PO SCH (09:07)
[2018-09-22] MEDS: CARVEDILOL 25 MG TABLET PO SCH ×2 (09:07→17:18)
[2018-09-22] MEDS: GLIMEPIRIDE 4 MG TABLET PO SCH ×2 (09:07→17:15)
[2018-09-22] MEDS: ATORVASTATIN 20 MG TABLET PO SCH (09:08)
[2018-09-22] MEDS: POLYETHYLENE GLYCOL POWDER 17 GM PACK PO SCH (09:08)
[2018-09-22] MEDS: INSULIN ASPART PROTAMINE/ASPART 70/30 100 UNIT/ML SUBCUT SCH ×2 (09:08→17:50)
[2018-09-22] MEDS: FLUTICASONE 50 MCG NASAL SPRAY 16 GM BOTTLE BOTH NARES SCH ×2 (09:09→20:40)
[2018-09-22] MEDS: INSULIN REGULAR 100 UNIT/ML SUBCUT SCH ×4 (09:10→20:40)
[2018-09-22] MEDS: ONDANSETRON 4 MG/2 ML VIAL IV PRN (09:21)
[2018-09-22] MEDS: LISINOPRIL 20 MG TABLET PO SCH (10:10)
[2018-09-22] MEDS: PANTOPRAZOLE 40 MG TABLET PO SCH ×2 (10:11→20:36)
[2018-09-22] MEDS: MONTELUKAST 10 MG TABLET PO SCH (10:11)
[2018-09-22] MEDS: GABAPENTIN 600 MG TABLET PO SCH ×3 (10:11→20:39)
[2018-09-22] MEDS: CHOLECALCIFEROL 1,000 UNIT TABLET PO SCH (10:11)
[2018-09-22] MEDS ORDERED: ONDANSETRON 4 MG/2 ML VIAL IV PRN (12:14)
[2018-09-22] MEDS ORDERED: oxyCODONE/ACETAMINOPHEN 5-325 MG TABLET PO PRN (12:14)
[2018-09-22] MEDS: GENTAMICIN 0.1% CREAM 15 GM TUBE TOP SCH (15:10)
[2018-09-22] MEDS: SKIN HEALING OINT (AQUAPHOR) 50 GM TUBE TOP SCH (15:10)
[2018-09-23] MEDS: oxyCODONE/ACETAMINOPHEN 5-325 MG TABLET PO PRN ×2 (00:35→09:59)
[2018-09-23] MEDS: ALBUTEROL/IPRATROPIUM 3 ML NEB RESP TX SCH ×4 (00:50→19:17)
[2018-09-23 05:26] LABS: Basophils % 0.3 % (0.0-0.8); Eosinophils # 0.3 10*3/uL (0.0-0.87); Eosinophils % 2.5 % (0.00-10.9); Hematocrit 35.3 VOL% (35.7-47.0); Immature Granulocytes % 0.5 %; Immature Granulocytes Absolute 0.06 #; Lymphocytes # 2.2 10*3/uL (1.4-4.0); Lymphocytes % 19.3 % (21.3-54.2); Mean Corpuscular HGB Conc 31.2 GM/DL (32-36); Mean Corpuscular Hemoglobin 29 PG (27-34); Mean Corpuscular Volume 93.6 FL (87-102); Mean Platelet Volume 11.3 FL (9.6-12.0); Monocytes # 0.9 10*3/uL (0.11-0.8); Monocytes % 7.8 % (1.7-12.7); Neutrophils # 7.8 10*3/uL (1.4-7.4); Neutrophils % 69.6 % (38.7-73.9); Platelet Count 259 T/CUMM (130-400); Red Blood Count 3.77 MC/CUMM (3.8-5.5); Red Cell Distribution Width 13.5 % (9.3-17.3); White Blood Count 11.2 T/CUMM (4-12)
[2018-09-23 05:38] LABS: Calcium 8.8 MG/DL (8.5-10.1); Osmolality,Calculated 278.8 MOS/KG (273-304); Potassium 4.1 MMOL/L (3.5-5.1)
[2018-09-23] MEDS: LIOTHYRONINE 25 MCG TABLET PO SCH (06:15)
[2018-09-23] MEDS: INSULIN REGULAR 100 UNIT/ML SUBCUT SCH ×4 (08:50→21:35)
[2018-09-23] MEDS: INSULIN ASPART PROTAMINE/ASPART 70/30 100 UNIT/ML SUBCUT SCH ×2 (08:56→16:47)
[2018-09-23] MEDS: GLIMEPIRIDE 4 MG TABLET PO SCH ×2 (09:57→17:21)
[2018-09-23] MEDS: ASPIRIN EC 325 MG TABLET PO SCH (09:58)
[2018-09-23] MEDS: SKIN HEALING OINT (AQUAPHOR) 50 GM TUBE TOP SCH (09:58)
[2018-09-23] MEDS: FUROSEMIDE 40 MG TABLET PO SCH ×2 (09:58→21:35)
[2018-09-23] MEDS: GENTAMICIN 0.1% CREAM 15 GM TUBE TOP SCH (09:58)
[2018-09-23] MEDS: ATORVASTATIN 20 MG TABLET PO SCH (09:58)
[2018-09-23] MEDS: ENOXAPARIN 40 MG/0.4 ML SYRINGE SUBCUT SCH (09:58)
[2018-09-23] MEDS: CARVEDILOL 25 MG TABLET PO SCH ×2 (09:58→17:21)
[2018-09-23] MEDS: FLUTICASONE 50 MCG NASAL SPRAY 16 GM BOTTLE BOTH NARES SCH ×2 (09:58→21:35)
[2018-09-23] MEDS: DOCUSATE SODIUM 100 MG CAPSULE PO SCH ×2 (09:58→21:35)
[2018-09-23] MEDS: POLYETHYLENE GLYCOL POWDER 17 GM PACK PO SCH (09:59)
[2018-09-23] MEDS: LISINOPRIL 20 MG TABLET PO SCH (09:59)
[2018-09-23] MEDS: PANTOPRAZOLE 40 MG TABLET PO SCH ×2 (09:59→21:35)
[2018-09-23] MEDS: GABAPENTIN 600 MG TABLET PO SCH ×3 (09:59→22:54)
[2018-09-23] MEDS: MONTELUKAST 10 MG TABLET PO SCH (09:59)
[2018-09-23] MEDS: CHOLECALCIFEROL 1,000 UNIT TABLET PO SCH (09:59)
[2018-09-23] MEDS: ONDANSETRON 4 MG/2 ML VIAL IV PRN ×3 (10:00→19:48)
[2018-09-23] MEDS: MORPHINE 4 MG/1 ML VIAL IV PRN ×2 (13:25→19:48)
[2018-09-24] MEDS: ALBUTEROL/IPRATROPIUM 3 ML NEB RESP TX SCH ×3 (00:34→16:32)
[2018-09-24] MEDS: LIOTHYRONINE 25 MCG TABLET PO SCH (06:47)
[2018-09-24] MEDS: INSULIN REGULAR 100 UNIT/ML SUBCUT SCH ×3 (08:50→18:01)
[2018-09-24] MEDS: INSULIN ASPART PROTAMINE/ASPART 70/30 100 UNIT/ML SUBCUT SCH ×2 (08:50→18:01)
[2018-09-24] MEDS: ASPIRIN EC 325 MG TABLET PO SCH (08:54)
[2018-09-24] MEDS: GLIMEPIRIDE 4 MG TABLET PO SCH ×2 (08:54→18:01)
[2018-09-24] MEDS: FUROSEMIDE 40 MG TABLET PO SCH (08:55)
[2018-09-24] MEDS: ATORVASTATIN 20 MG TABLET PO SCH (08:55)
[2018-09-24] MEDS: FLUTICASONE 50 MCG NASAL SPRAY 16 GM BOTTLE BOTH NARES SCH (08:55)
[2018-09-24] MEDS: CHOLECALCIFEROL 1,000 UNIT TABLET PO SCH (08:55)
[2018-09-24] MEDS: PANTOPRAZOLE 40 MG TABLET PO SCH (08:55)
[2018-09-24] MEDS: GABAPENTIN 600 MG TABLET PO SCH ×2 (08:55→16:09)
[2018-09-24] MEDS: DOCUSATE SODIUM 100 MG CAPSULE PO SCH (08:55)
[2018-09-24] MEDS: CARVEDILOL 25 MG TABLET PO SCH ×2 (08:55→18:01)
[2018-09-24] MEDS: LISINOPRIL 20 MG TABLET PO SCH (08:55)
[2018-09-24] MEDS: MONTELUKAST 10 MG TABLET PO SCH (08:55)
[2018-09-24] MEDS: ENOXAPARIN 40 MG/0.4 ML SYRINGE SUBCUT SCH (08:56)
[2018-09-24] MEDS: SKIN HEALING OINT (AQUAPHOR) 50 GM TUBE TOP SCH (08:56)
[2018-09-24] MEDS: GENTAMICIN 0.1% CREAM 15 GM TUBE TOP SCH (08:56)
[2018-09-24] MEDS ORDERED: POLYETHYLENE GLYCOL POWDER 17 GM PACK PO SCH (09:00)
[2018-09-24 17:11] VITALS: BP 147/80
== END 2018-09-24 17:05 | DRG 853 ==
LOC: N.ED 01:26 → N.EDINP 03:40 → SUATTDRO 03:40 → N.3E 04:08 → N.ICU 09-13 15:45 → N.3E 09-14 15:46
PROVIDERS: ADMIT Hospitalist; ATTEND Internal Medicine

== ENCOUNTER 2018-12-12 02:50 | Inpatient (IN) ==
[2018-12-12 03:28] LABS: Basophils % 0.4 % (0.0-0.8); Eosinophils # 0.2 10*3/uL (0.0-0.87); Eosinophils % 2.5 % (0.00-10.9); Hemoglobin 11.8 GM/DL (12.0-16.0); Immature Granulocytes % 0.3 %; Immature Granulocytes Absolute 0.03 #; Lymphocytes # 3.4 10*3/uL (1.4-4.0); Lymphocytes % 34.9 % (21.3-54.2); Mean Corpuscular HGB Conc 31.1 GM/DL (32-36); Mean Corpuscular Hemoglobin 28 PG (27-34); Mean Corpuscular Volume 88.8 FL (87-102); Mean Platelet Volume 11.8 FL (9.6-12.0); Monocytes # 0.8 10*3/uL (0.11-0.8); Monocytes % 7.8 % (1.7-12.7); Neutrophils # 5.3 10*3/uL (1.4-7.4); Neutrophils % 54.1 % (38.7-73.9); Platelet Count 190 T/CUMM (130-400); Red Blood Count 4.28 MC/CUMM (3.8-5.5); Red Cell Distribution Width 13.9 % (9.3-17.3); White Blood Count 9.8 T/CUMM (4-12)
[2018-12-12 03:38] LABS: PT Patient Result 10.9 SECS
[2018-12-12 03:42] LABS: Albumin 2.9 G/DL (3.4-5.0); Bilirubin,Total 0.5 MG/DL (0.2-1.0); Calcium 8.4 MG/DL (8.5-10.1); Potassium 4.1 MMOL/L (3.5-5.1); Total Protein 8.3 G/DL (6.4-8.3)
[2018-12-12] MEDS ORDERED: FUROSEMIDE 40 MG/4 ML VIAL IV STA (05:29)
[2018-12-12] MEDS ORDERED: ONDANSETRON 4 MG/2 ML VIAL IV PRN (06:10)
[2018-12-12] MEDS ORDERED: ALBUTEROL/IPRATROPIUM 3 ML NEB RESP TX PRN (06:14)
[2018-12-12] MEDS ORDERED: GLUCAGON 1 MG VIAL IM PRN (06:25)
[2018-12-12] MEDS ORDERED: DEXTROSE 50% 25 GM/50 ML VIAL IV PRN (06:25)
[2018-12-12 06:38] LABS: ABG Base Excess 5.2 MMOL/L (-2.5-2.5); ABG HCO3 31.6 MMOL/L (20-26); ABG Oxygen Saturation 95.5 % (95-100); ABG PCO2 54.2 MM HG (35-48); ABG PH 7.383 (7.35-7.45); ABG PO2 85.6 MM HG (80-95); ABG TCO2 33.2 MMOL/L (23-27); Allen Test Positive
[2018-12-12 07:10] LABS: Apearance,Urine CLOUDY (Clear); Bacteria,Urine Occasional /HPF (Few); Bilirubin,Urine Negative (Negative); Blood, Urine Moderate mg/dL (Negative); Glucose,Urine (UA) Negative (Negative); Ketones,Urine Negative (Negative); Nitrite,Urine Negative (Negative); Protein,Urine 30 MG/DL; RBC,Urine 22 /HPF (0-4); Squamous Epithelial Cell,Urine Occasional /HPF (0-10); Urine Color Yellow (Yellow); Urine Specific Gravity 1.053 (1.001-1.035); Urine Urobilinogen < 2.0 EU/DL (0.2-1.0); WBC,Urine 674 /HPF (0-6)
[2018-12-12] MEDS: INSULIN REGULAR 100 UNIT/ML SUBCUT SCH ×4 (08:59→21:18)
[2018-12-12] MEDS: LIOTHYRONINE 25 MCG TABLET PO SCH (08:59)
[2018-12-12] MEDS ORDERED: LISINOPRIL 20 MG TABLET PO SCH (09:00)
[2018-12-12] MEDS: FUROSEMIDE 40 MG/4 ML VIAL IV SCH ×2 (09:41→16:52)
[2018-12-12] MEDS: ATORVASTATIN 20 MG TABLET PO SCH (09:42)
[2018-12-12] MEDS: GLIMEPIRIDE 4 MG TABLET PO SCH ×2 (09:42→17:14)
[2018-12-12] MEDS: PANTOPRAZOLE 40 MG TABLET PO SCH (09:42)
[2018-12-12] MEDS: MONTELUKAST 10 MG TABLET PO SCH (09:42)
[2018-12-12] MEDS: FLUTICASONE 50 MCG NASAL SPRAY 16 GM BOTTLE BOTH NARES SCH ×2 (09:43→21:17)
[2018-12-12] MEDS: ENOXAPARIN 40 MG/0.4 ML SYRINGE SUBCUT SCH (09:43)
[2018-12-12] MEDS ORDERED: cefTRIAXone 1,000 MG in SYRINGE 1 EACH IV SCH (18:00)
[2018-12-12] MEDS ORDERED: CARVEDILOL 6.25 MG TABLET PO SCH (21:00)
[2018-12-12] MEDS: SPIRONOLACTONE 25 MG TABLET PO SCH (21:16)
[2018-12-13] MEDS: ACETAMINOPHEN 325 MG TABLET PO PRN (02:23)
[2018-12-13 04:43] LABS: Basophils # 0.1 10*3/uL (0.0-0.2); Basophils % 0.6 % (0.0-0.8); Eosinophils # 0.3 10*3/uL (0.0-0.87); Eosinophils % 3.8 % (0.00-10.9); Hematocrit 40.1 VOL% (35.7-47.0); Hemoglobin 12.4 GM/DL (12.0-16.0); Immature Granulocytes % 0.2 %; Immature Granulocytes Absolute 0.02 #; Lymphocytes # 3.5 10*3/uL (1.4-4.0); Lymphocytes % 39.6 % (21.3-54.2); Mean Corpuscular HGB Conc 30.9 GM/DL (32-36); Mean Corpuscular Hemoglobin 27 PG (27-34); Mean Corpuscular Volume 87.7 FL (87-102); Mean Platelet Volume 11.9 FL (9.6-12.0); Monocytes # 0.8 10*3/uL (0.11-0.8); Monocytes % 9.2 % (1.7-12.7); Neutrophils # 4.2 10*3/uL (1.4-7.4); Neutrophils % 46.6 % (38.7-73.9); Platelet Count 199 T/CUMM (130-400); Red Blood Count 4.57 MC/CUMM (3.8-5.5); Red Cell Distribution Width 13.5 % (9.3-17.3); White Blood Count 8.9 T/CUMM (4-12)
[2018-12-13 05:20] LABS: Calcium 8.5 MG/DL (8.5-10.1); Osmolality,Calculated 276.7 MOS/KG (273-304); Potassium 3.4 MMOL/L (3.5-5.1)
[2018-12-13] MEDS: LIOTHYRONINE 25 MCG TABLET PO SCH (06:37)
[2018-12-13] MEDS: INSULIN REGULAR 100 UNIT/ML SUBCUT SCH ×4 (07:41→21:40)
[2018-12-13] MEDS: INSULIN ASPART PROTAMINE/ASPART 70/30 100 UNIT/ML SUBCUT SCH ×2 (07:52→16:24)
[2018-12-13] MEDS: SPIRONOLACTONE 25 MG TABLET PO SCH ×2 (08:40→21:34)
[2018-12-13] MEDS ORDERED: FUROSEMIDE 40 MG/4 ML VIAL IV SCH (08:40)
[2018-12-13] MEDS: LISINOPRIL 20 MG TABLET PO SCH (08:41)
[2018-12-13] MEDS: CARVEDILOL 25 MG TABLET PO SCH ×2 (08:41→21:34)
[2018-12-13] MEDS: POTASSIUM CHLORIDE 20 MEQ TABLET PO PRN ×3 (08:41→12:40)
[2018-12-13] MEDS: FUROSEMIDE 40 MG/4 ML VIAL IV SCH ×2 (08:42→16:24)
[2018-12-13] MEDS: PANTOPRAZOLE 40 MG TABLET PO SCH (09:18)
[2018-12-13] MEDS: FLUTICASONE 50 MCG NASAL SPRAY 16 GM BOTTLE BOTH NARES SCH ×2 (09:18→21:35)
[2018-12-13] MEDS: MONTELUKAST 10 MG TABLET PO SCH (09:19)
[2018-12-13] MEDS: ENOXAPARIN 40 MG/0.4 ML SYRINGE SUBCUT SCH (09:19)
[2018-12-13] MEDS: GLIMEPIRIDE 4 MG TABLET PO SCH ×2 (09:24→16:24)
[2018-12-13] MEDS ORDERED: FUROSEMIDE 40 MG/4 ML VIAL IV ONE (10:35)
[2018-12-13] MEDS: ATORVASTATIN 20 MG TABLET PO SCH (10:49)
[2018-12-13] MEDS: MAGNESIUM HYDROXIDE SUSP 30 ML UDCUP PO PRN ×2 (14:30→21:35)
[2018-12-13] MEDS: cefTRIAXone 1,000 MG in SODIUM CHLORIDE 0.9% 100 ML IV SCH (18:21)
[2018-12-13] MEDS: POLYETHYLENE GLYCOL POWDER 17 GM PACK PO SCH (21:00)
[2018-12-14] MEDS: LIOTHYRONINE 25 MCG TABLET PO SCH (06:46)
[2018-12-14] MEDS: INSULIN REGULAR 100 UNIT/ML SUBCUT SCH ×4 (07:43→21:38)
[2018-12-14] MEDS: ATORVASTATIN 20 MG TABLET PO SCH (08:26)
[2018-12-14] MEDS: INSULIN ASPART PROTAMINE/ASPART 70/30 100 UNIT/ML SUBCUT SCH ×2 (08:26→16:32)
[2018-12-14] MEDS: ENOXAPARIN 40 MG/0.4 ML SYRINGE SUBCUT SCH (08:26)
[2018-12-14] MEDS: LISINOPRIL 20 MG TABLET PO SCH (08:26)
[2018-12-14] MEDS: POLYETHYLENE GLYCOL POWDER 17 GM PACK PO SCH (08:26)
[2018-12-14] MEDS: SPIRONOLACTONE 25 MG TABLET PO SCH ×2 (08:26→21:39)
[2018-12-14] MEDS: PANTOPRAZOLE 40 MG TABLET PO SCH (08:26)
[2018-12-14] MEDS: MONTELUKAST 10 MG TABLET PO SCH (08:26)
[2018-12-14] MEDS: CARVEDILOL 25 MG TABLET PO SCH ×2 (08:26→21:40)
[2018-12-14] MEDS: GLIMEPIRIDE 4 MG TABLET PO SCH ×2 (08:26→16:32)
[2018-12-14] MEDS: FLUTICASONE 50 MCG NASAL SPRAY 16 GM BOTTLE BOTH NARES SCH ×2 (08:27→21:40)
[2018-12-14] MEDS: MAGNESIUM HYDROXIDE SUSP 30 ML UDCUP PO PRN (08:27)
[2018-12-14] MEDS: FUROSEMIDE 40 MG/4 ML VIAL IV SCH ×2 (08:27→16:17)
[2018-12-14] MEDS: POTASSIUM CHLORIDE 20 MEQ TABLET PO PRN ×2 (08:41→10:28)
[2018-12-14] MEDS: ACETAMINOPHEN 325 MG TABLET PO PRN (12:26)
[2018-12-14] MEDS: cefTRIAXone 1,000 MG in SODIUM CHLORIDE 0.9% 100 ML IV SCH (18:55)
[2018-12-15] MEDS: POLYETHYLENE GLYCOL POWDER 17 GM PACK PO SCH ×2 (00:14→10:54)
[2018-12-15 05:39] LABS: Basophils % 0.4 % (0.0-0.8); Eosinophils # 0.3 10*3/uL (0.0-0.87); Eosinophils % 3.3 % (0.00-10.9); Hematocrit 40.1 VOL% (35.7-47.0); Hemoglobin 12.6 GM/DL (12.0-16.0); Immature Granulocytes % 0.3 %; Immature Granulocytes Absolute 0.03 #; Lymphocytes # 3.5 10*3/uL (1.4-4.0); Lymphocytes % 35.4 % (21.3-54.2); Mean Corpuscular HGB Conc 31.4 GM/DL (32-36); Mean Corpuscular Hemoglobin 28 PG (27-34); Mean Corpuscular Volume 88.5 FL (87-102); Mean Platelet Volume 11.7 FL (9.6-12.0); Monocytes # 0.9 10*3/uL (0.11-0.8); Neutrophils # 5.1 10*3/uL (1.4-7.4); Neutrophils % 51.6 % (38.7-73.9); Platelet Count 205 T/CUMM (130-400); Red Blood Count 4.53 MC/CUMM (3.8-5.5); Red Cell Distribution Width 13.6 % (9.3-17.3); White Blood Count 9.8 T/CUMM (4-12)
[2018-12-15 05:46] LABS: Calcium 9.2 MG/DL (8.5-10.1); Osmolality,Calculated 280.7 MOS/KG (273-304); Potassium 3.5 MMOL/L (3.5-5.1)
[2018-12-15] MEDS: LIOTHYRONINE 25 MCG TABLET PO SCH (06:06)
[2018-12-15] MEDS: ACETAMINOPHEN 325 MG TABLET PO PRN (06:12)
[2018-12-15] MEDS: INSULIN ASPART PROTAMINE/ASPART 70/30 100 UNIT/ML SUBCUT SCH ×2 (08:23→17:37)
[2018-12-15] MEDS ORDERED: FUROSEMIDE 40 MG/4 ML VIAL IV SCH (09:00)
[2018-12-15] MEDS: GLIMEPIRIDE 4 MG TABLET PO SCH (09:08)
[2018-12-15] MEDS: ATORVASTATIN 20 MG TABLET PO SCH (09:08)
[2018-12-15] MEDS: MONTELUKAST 10 MG TABLET PO SCH (09:08)
[2018-12-15] MEDS: SPIRONOLACTONE 25 MG TABLET PO SCH (09:08)
[2018-12-15] MEDS: FLUTICASONE 50 MCG NASAL SPRAY 16 GM BOTTLE BOTH NARES SCH (09:08)
[2018-12-15] MEDS: CARVEDILOL 25 MG TABLET PO SCH (09:08)
[2018-12-15] MEDS: LISINOPRIL 20 MG TABLET PO SCH (09:08)
[2018-12-15] MEDS: PANTOPRAZOLE 40 MG TABLET PO SCH (09:08)
[2018-12-15] MEDS: INSULIN REGULAR 100 UNIT/ML SUBCUT SCH ×3 (09:10→17:34)
[2018-12-15] MEDS: FUROSEMIDE 40 MG/4 ML VIAL IV SCH (09:11)
[2018-12-15] MEDS: ENOXAPARIN 40 MG/0.4 ML SYRINGE SUBCUT SCH (09:11)
[2018-12-15 12:22] VITALS: BP 116/69
[2018-12-15] MEDS ORDERED: SKIN HEALING OINT (AQUAPHOR) 50 GM TUBE TOP SCH (15:00)
== END 2018-12-15 18:38 | disposition home health service (06) | DRG 292 ==
LOC: EDBD → EDUNIT# → N.ED 02:50 → SUATTDRO 06:10 → N.EDINP 06:10 → N.TELEN 06:35
PROVIDERS: ADMIT Internal Medicine; ATTEND Internal Medicine Geriatric Medicine

== ENCOUNTER 2019-06-05 11:45 | Observation (INO) ==
[2019-06-05 13:14] LABS: Basophils % 0.4 % (0.0-0.8); Eosinophils # 0.3 10*3/uL (0.0-0.87); Hematocrit 42.3 VOL% (35.7-47.0); Hemoglobin 13.9 GM/DL (12.0-16.0); Immature Granulocytes % 0.5 %; Immature Granulocytes Absolute 0.05 #; Lymphocytes # 3.3 10*3/uL (1.4-4.0); Lymphocytes % 33.6 % (21.3-54.2); Mean Corpuscular HGB Conc 32.9 GM/DL (32-36); Mean Corpuscular Volume 89.2 FL (87-102); Mean Platelet Volume 11.7 FL (9.6-12.0); Monocytes % 8.3 % (1.7-12.7); Neutrophils % 54.2 % (38.7-73.9); Platelet Count 208 T/CUMM (130-400); Red Blood Count 4.74 MC/CUMM (3.8-5.5); Red Cell Distribution Width 12.7 % (9.3-17.3); White Blood Count 9.8 T/CUMM (4-12)
[2019-06-05 13:25] LABS: INR 0.9; PT Patient Result 10.2 SECS (9.6-12.2); Partial Thromboplastin Time 27.3 SECS (20.8-36.0)
[2019-06-05 13:41] LABS: Albumin 3.3 G/DL (3.4-5.0); Bilirubin,Total 0.4 MG/DL (0.2-1.0); Calcium 8.7 MG/DL (8.5-10.1); Total Protein 7.6 G/DL (6.4-8.3)
[2019-06-05 13:58] LABS: Troponin I < 0.015 NG/ML (0.00-0.045)
[2019-06-05] MEDS ORDERED: ACETAMINOPHEN 325 MG TABLET PO PRN (18:13)
[2019-06-05] MEDS ORDERED: GLUCAGON 1 MG VIAL IM PRN (18:13)
[2019-06-05] MEDS ORDERED: ALUM/MAG/SIMETH/LIDO VISC 1:1 30 ML BOTTLE PO PRN (18:13)
[2019-06-05] MEDS ORDERED: MORPHINE 4 MG/1 ML VIAL IV PRN (18:13)
[2019-06-05] MEDS ORDERED: MAGNESIUM SULF RIDER 2 GM in PREMIX 1 EACH IV PRN (18:13)
[2019-06-05] MEDS ORDERED: DEXTROSE 10% 250 ML BAG IV PRN (18:13)
[2019-06-05] MEDS ORDERED: ONDANSETRON 4 MG/2 ML VIAL IV PRN (18:13)
[2019-06-05] MEDS ORDERED: SODIUM CHLORIDE 0.9% 1,000 ML IV SCH (18:30)
[2019-06-05] MEDS: IPRATROPIUM 500 MCG/2.5 ML NEB RESP TX SCH (19:48)
[2019-06-05] MEDS: INSULIN LISPRO 100 UNIT/ML SUBCUT SCH (20:05)
[2019-06-05] MEDS ORDERED: INFLUENZA VIRUS VACCINE 0.5 ML SYRINGE IM ONE (20:30)
[2019-06-05] MEDS ORDERED: ATORVASTATIN 20 MG TABLET PO SCH (21:00)
[2019-06-05] MEDS ORDERED: FUROSEMIDE 40 MG TABLET PO SCH (21:00)
[2019-06-05] MEDS ORDERED: MELOXICAM 7.5 MG TABLET PO SCH (21:00)
[2019-06-05] MEDS: URSODIOL 300 MG CAPSULE PO SCH (22:10)
[2019-06-05] MEDS: SPIRONOLACTONE 25 MG TABLET PO SCH (22:11)
[2019-06-05] MEDS: GABAPENTIN 600 MG TABLET PO SCH (22:12)
[2019-06-05] MEDS: ENOXAPARIN 150 MG/ML SYRINGE SUBCUT SCH (22:12)
[2019-06-05] MEDS: carvediloL 25 MG TABLET PO SCH (22:12)
[2019-06-05] MEDS: FUROSEMIDE 40 MG/4 ML VIAL IV SCH (22:14)
[2019-06-06 04:48] LABS: Apearance,Urine CLOUDY (Clear); Bacteria,Urine Occasional /HPF (Few); Bilirubin,Urine Negative (Negative); Blood, Urine Small mg/dL (Negative); Glucose,Urine (UA) Negative (Negative); Ketones,Urine Negative (Negative); Mucus,Urine Occasional /LPF (Occasional); Nitrite,Urine Negative (Negative); Protein,Urine Negative; RBC,Urine 4 /HPF (0-4); Squamous Epithelial Cell,Urine Few /HPF (0-10); Urine Color Yellow (Yellow); Urine Specific Gravity 1.012 (1.001-1.035); Urine Urobilinogen < 2.0 EU/DL (0.2-1.0); WBC,Urine 79 /HPF (0-6)
[2019-06-06 05:45] LABS: Basophils # 0.1 10*3/uL (0.0-0.2); Basophils % 0.5 % (0.0-0.8); Eosinophils # 0.3 10*3/uL (0.0-0.87); Eosinophils % 2.6 % (0.00-10.9); Hematocrit 40.3 VOL% (35.7-47.0); Hemoglobin 13.2 GM/DL (12.0-16.0); Immature Granulocytes % 0.3 %; Immature Granulocytes Absolute 0.03 #; Lymphocytes # 3.7 10*3/uL (1.4-4.0); Mean Corpuscular HGB Conc 32.8 GM/DL (32-36); Mean Corpuscular Volume 89.2 FL (87-102); Mean Platelet Volume 11.3 FL (9.6-12.0); Monocytes % 8.3 % (1.7-12.7); Neutrophils % 52.3 % (38.7-73.9); Platelet Count 200 T/CUMM (130-400); Red Blood Count 4.52 MC/CUMM (3.8-5.5); Red Cell Distribution Width 12.9 % (9.3-17.3); White Blood Count 10.2 T/CUMM (4-12)
[2019-06-06 06:23] LABS: Albumin 3.1 G/DL (3.4-5.0); Bilirubin,Total 1.1 MG/DL (0.2-1.0); Calcium 9.2 MG/DL (8.5-10.1); Osmolality,Calculated 285.3 MOS/KG (273-304); Risk Ratio 3.48; Thyroid Stimulating Hormone 1.67 uIU/ml (0.358-3.74); Total Protein 7.6 G/DL (6.4-8.3); VLDL CHOLESTEROL 37.2 MG/DL
[2019-06-06] MEDS: IPRATROPIUM 500 MCG/2.5 ML NEB RESP TX SCH (07:00)
[2019-06-06] MEDS ORDERED: LIOTHYRONINE 25 MCG TABLET PO SCH (07:30)
[2019-06-06] MEDS: FUROSEMIDE 40 MG/4 ML VIAL IV SCH (08:45)
[2019-06-06] MEDS: URSODIOL 300 MG CAPSULE PO SCH (08:45)
[2019-06-06] MEDS: SPIRONOLACTONE 25 MG TABLET PO SCH (08:46)
[2019-06-06] MEDS: GABAPENTIN 600 MG TABLET PO SCH (08:46)
[2019-06-06] MEDS: INSULIN LISPRO 100 UNIT/ML SUBCUT SCH ×2 (08:46→13:27)
[2019-06-06] MEDS: ENOXAPARIN 150 MG/ML SYRINGE SUBCUT SCH (08:47)
[2019-06-06] MEDS: carvediloL 25 MG TABLET PO SCH (08:47)
[2019-06-06] MEDS ORDERED: LISINOPRIL 20 MG TABLET PO SCH (09:00)
[2019-06-06] MEDS ORDERED: MONTELUKAST 10 MG TABLET PO SCH (09:00)
[2019-06-06] MEDS ORDERED: ASPIRIN EC 81 MG TABLET PO SCH (09:00)
[2019-06-06] MEDS ORDERED: PANTOPRAZOLE 40 MG TABLET PO SCH (09:00)
[2019-06-06] MEDS ORDERED: ENOXAPARIN 40 MG/0.4 ML SYRINGE SUBCUT SCH (09:30)
[2019-06-06 15:48] VITALS: BP 122/66
[2019-06-06] MEDS ORDERED: FUROSEMIDE 80 MG TABLET PO SCH (16:00)
[2019-06-06] MEDS ORDERED: ALLOPURINOL 100 MG TABLET PO SCH (17:00)
== END 2019-06-06 16:43 | disposition home or self-care (01) ==
LOC: EDBD → EDUNIT# → N.ED 11:45 → N.EDINP 11:45 → N.2E 19:14
PROVIDERS: ADMIT Internal Medicine; ATTEND Internal Medicine

== ENCOUNTER 2021-07-06 14:45 | Inpatient (IN) ==
[2021-07-06] MEDS ORDERED: FUROSEMIDE 40 MG/4 ML VIAL IV STA (14:58)
[2021-07-06 15:47] LABS: ABG PCO2 58.7 MM HG (35-48); ABG PH 7.306 (7.35-7.45); ABG PO2 92.3 MM HG (80-95)
[2021-07-06 15:47] LABS: Basophils % 0.3 % (0.0-0.8); Eosinophils # 0.2 10*3/uL (0.0-0.87); Eosinophils % 1.6 % (0.00-10.9); Hematocrit 33.1 VOL% (35.7-47.0); Hemoglobin 9.9 GM/DL (12.0-16.0); Immature Granulocytes % 0.3 %; Immature Granulocytes Absolute 0.03 #; Lymphocytes # 2.5 10*3/uL (1.4-4.0); Lymphocytes % 23.5 % (21.3-54.2); Mean Corpuscular HGB Conc 29.9 GM/DL (32-36); Mean Corpuscular Volume 90.7 FL (87-102); Mean Platelet Volume 11.8 FL (9.6-12.0); Monocytes % 9.7 % (1.7-12.7); Neutrophils % 64.6 % (38.7-73.9); Platelet Count 153 T/CUMM (130-400); Red Blood Count 3.65 MC/CUMM (3.8-5.5); Red Cell Distribution Width 15.9 % (9.3-17.3); White Blood Count 10.6 T/CUMM (4-12)
[2021-07-06 15:48] LABS: ABG Base Excess 1.8 MMOL/L (-2.5-2.5); ABG Oxygen Saturation 95.1 % (95-100)
[2021-07-06 16:06] LABS: Albumin 2.5 G/DL (3.4-5.0); Bilirubin,Total 0.9 MG/DL (0.20-1.00); Calcium 8.7 MG/DL (8.5-10.1); Osmolality,Calculated 294.1 MOS/KG (273-304); Potassium 5.5 MMOL/L (3.5-5.1); Total Protein 7.4 G/DL (6.4-8.2)
[2021-07-06] MEDS ORDERED: ONDANSETRON 4 MG/2 ML VIAL ONE (16:09)
[2021-07-06] MEDS ORDERED: ONDANSETRON 4 MG/2 ML VIAL IV ONE (16:09)
[2021-07-06] MEDS ORDERED: MORPHINE 2 MG/1 ML SYRINGE IV STA (16:09)
[2021-07-06] MEDS ORDERED: MORPHINE 2 MG/1 ML SYRINGE ONE (16:09)
[2021-07-06] MEDS ORDERED: SODIUM CHLORIDE 0.9% 500 ML IV STA (17:07)
[2021-07-06 17:17] LABS: Bilirubin,Urine Negative (Negative); Blood, Urine Moderate mg/dL (Negative); Glucose,Urine (UA) Negative (Negative); Hyaline Casts,Urine 3 /LPF (0-3); Ketones,Urine Negative (Negative); Mucus,Urine Occasional /LPF (Occasional); Nitrite,Urine Negative (Negative); Protein,Urine Negative; RBC,Urine 1 /HPF (0-4); Squamous Epithelial Cell,Urine Occasional /HPF (0-10); Urine Appearance CLEAR (Clear); Urine Color Yellow (Yellow); Urine Specific Gravity 1.013 (1.001-1.035)
[2021-07-06] MEDS ORDERED: METOPROLOL TARTRATE 5 MG/5 ML VIAL IV STA (17:22)
[2021-07-06] MEDS ORDERED: ENOXAPARIN 120 MG/0.8 ML SYRINGE SUBCUT STA (17:47)
[2021-07-06] MEDS ORDERED: DEXTROSE 50% 25 GM/50 ML VIAL IV PRN ×2 (17:49)
[2021-07-06] MEDS ORDERED: hydrALAZINE 20 MG/1 ML VIAL IV PRN (17:49)
[2021-07-06] MEDS ORDERED: ONDANSETRON 4 MG/2 ML VIAL IV PRN (17:49)
[2021-07-06] MEDS ORDERED: ACETAMINOPHEN 325 MG TABLET PO PRN (17:49)
[2021-07-06] MEDS ORDERED: GLUCAGON 1 MG VIAL IM PRN (17:49)
[2021-07-06] MEDS ORDERED: ALBUTEROL 2.5 MG/3 ML NEB RESP TX PRN (17:49)
[2021-07-06] MEDS ORDERED: ENOXAPARIN 40 MG/0.4 ML SYRINGE SUBCUT SCH (18:00)
[2021-07-06] MEDS ORDERED: SODIUM POLYSTYRENE SULFATE 15 GM/60 ML BOTTLE PO ONE (18:20)
[2021-07-06] MEDS: DILTIAZEM INJ 100 MG in SODIUM CHLORIDE 0.9% 100 ML IV SCH (18:39)
[2021-07-06] MEDS: ASCORBIC ACID 500 MG TABLET PO SCH (21:38)
[2021-07-06] MEDS: INSULIN LISPRO 100 UNIT/ML SUBCUT SCH (21:49)
[2021-07-06] MEDS: atenoloL 50 MG TABLET PO SCH (21:49)
[2021-07-07 04:08] LABS: Basophils % 0.3 % (0.0-0.8); Eosinophils # 0.2 10*3/uL (0.0-0.87); Eosinophils % 1.6 % (0.00-10.9); Hematocrit 31.8 VOL% (35.7-47.0); Hemoglobin 9.3 GM/DL (12.0-16.0); Immature Granulocytes % 0.5 %; Immature Granulocytes Absolute 0.05 #; Lymphocytes # 2.4 10*3/uL (1.4-4.0); Lymphocytes % 22.4 % (21.3-54.2); Mean Corpuscular HGB Conc 29.2 GM/DL (32-36); Mean Corpuscular Volume 91.9 FL (87-102); Mean Platelet Volume 12.2 FL (9.6-12.0); Monocytes % 10.5 % (1.7-12.7); Neutrophils % 64.7 % (38.7-73.9); Platelet Count 163 T/CUMM (130-400); Red Blood Count 3.46 MC/CUMM (3.8-5.5); Red Cell Distribution Width 16.1 % (9.3-17.3); White Blood Count 10.8 T/CUMM (4-12)
[2021-07-07 04:31] LABS: Calcium 8.6 MG/DL (8.5-10.1); Osmolality,Calculated 299.8 MOS/KG (273-304); Potassium 5.3 MMOL/L (3.5-5.1)
[2021-07-07] MEDS: DILTIAZEM INJ 100 MG in SODIUM CHLORIDE 0.9% 100 ML IV SCH ×2 (05:27→17:32)
[2021-07-07] MEDS: INSULIN LISPRO 100 UNIT/ML SUBCUT SCH ×4 (09:03→20:56)
[2021-07-07] MEDS: ASCORBIC ACID 500 MG TABLET PO SCH ×2 (09:03→20:55)
[2021-07-07] MEDS: PANTOPRAZOLE 40 MG TABLET PO SCH (09:03)
[2021-07-07] MEDS: ASPIRIN EC 81 MG TABLET PO SCH (09:03)
[2021-07-07] MEDS: atenoloL 50 MG TABLET PO SCH (09:04)
[2021-07-07] MEDS: cefTRIAXone 1,000 MG in SODIUM CHLORIDE 0.9% 100 ML IV SCH (09:08)
[2021-07-07] MEDS: DOXYCYCLINE HYCLATE INJ 100 MG in SODIUM CHLORIDE 0.9% 100 ML IV SCH ×2 (13:10→20:56)
[2021-07-07] MEDS: RIVAROXABAN 15 MG TABLET PO SCH (16:48)
[2021-07-07] MEDS ORDERED: ENOXAPARIN 40 MG/0.4 ML SYRINGE SUBCUT SCH (18:00)
[2021-07-07] MEDS: carvediloL 25 MG TABLET PO SCH (20:55)
[2021-07-07] MEDS: METOPROLOL TARTRATE 5 MG/5 ML VIAL IV PRN (23:30)
[2021-07-08 05:41] LABS: Basophils % 0.3 % (0.0-0.8); Eosinophils # 0.2 10*3/uL (0.0-0.87); Eosinophils % 1.9 % (0.00-10.9); Hematocrit 29.3 VOL% (35.7-47.0); Hemoglobin 8.9 GM/DL (12.0-16.0); Immature Granulocytes % 0.4 %; Immature Granulocytes Absolute 0.04 #; Lymphocytes # 2.6 10*3/uL (1.4-4.0); Lymphocytes % 24.3 % (21.3-54.2); Mean Corpuscular HGB Conc 30.4 GM/DL (32-36); Mean Corpuscular Volume 90.4 FL (87-102); Mean Platelet Volume 12.1 FL (9.6-12.0); Monocytes % 8.4 % (1.7-12.7); Neutrophils % 64.7 % (38.7-73.9); Platelet Count 173 T/CUMM (130-400); Red Blood Count 3.24 MC/CUMM (3.8-5.5); Red Cell Distribution Width 16.3 % (9.3-17.3); White Blood Count 10.6 T/CUMM (4-12)
[2021-07-08 06:11] LABS: Albumin 2.4 G/DL (3.4-5.0); Bilirubin,Total 0.9 MG/DL (0.20-1.00); Calcium 8.7 MG/DL (8.5-10.1); Osmolality,Calculated 299.7 MOS/KG (273-304); Potassium 5.3 MMOL/L (3.5-5.1); Total Protein 6.9 G/DL (6.4-8.2)
[2021-07-08] MEDS: INSULIN LISPRO 100 UNIT/ML SUBCUT SCH ×4 (08:15→21:23)
[2021-07-08] MEDS: ASPIRIN EC 81 MG TABLET PO SCH (10:12)
[2021-07-08] MEDS: cefTRIAXone 1,000 MG in SODIUM CHLORIDE 0.9% 100 ML IV SCH (10:12)
[2021-07-08] MEDS: ASCORBIC ACID 500 MG TABLET PO SCH ×2 (10:12→21:22)
[2021-07-08] MEDS: PANTOPRAZOLE 40 MG TABLET PO SCH ×2 (10:12→21:22)
[2021-07-08] MEDS: carvediloL 25 MG TABLET PO SCH ×2 (10:12→21:22)
[2021-07-08] MEDS: DOXYCYCLINE HYCLATE INJ 100 MG in SODIUM CHLORIDE 0.9% 100 ML IV SCH ×2 (10:48→21:22)
[2021-07-08] MEDS ORDERED: ALUM/MAG/SIMETH/LIDO VISC 1:1 30 ML BOTTLE PO ONE (10:59)
[2021-07-08] MEDS ORDERED: SODIUM POLYSTYRENE SULFATE 15 GM/60 ML BOTTLE PO ONE (11:16)
[2021-07-08] MEDS: DILTIAZEM CD 120 MG CAPSULE PO SCH (11:43)
[2021-07-08] MEDS: RIVAROXABAN 15 MG TABLET PO SCH (16:50)
[2021-07-09 06:10] LABS: Basophils # 0.1 10*3/uL (0.0-0.2); Basophils % 0.6 % (0.0-0.8); Eosinophils # 0.2 10*3/uL (0.0-0.87); Eosinophils % 1.5 % (0.00-10.9); Hematocrit 30.5 VOL% (35.7-47.0); Hemoglobin 8.9 GM/DL (12.0-16.0); Immature Granulocytes % 0.6 %; Immature Granulocytes Absolute 0.06 #; Lymphocytes # 2.9 10*3/uL (1.4-4.0); Lymphocytes % 27.8 % (21.3-54.2); Mean Corpuscular HGB Conc 29.2 GM/DL (32-36); Mean Platelet Volume 11.7 FL (9.6-12.0); Monocytes % 9.1 % (1.7-12.7); Neutrophils % 60.4 % (38.7-73.9); Platelet Count 191 T/CUMM (130-400); Red Blood Count 3.35 MC/CUMM (3.8-5.5); Red Cell Distribution Width 16.9 % (9.3-17.3); White Blood Count 10.4 T/CUMM (4-12)
[2021-07-09 06:26] LABS: Calcium 8.7 MG/DL (8.5-10.1); Potassium 5.4 MMOL/L (3.5-5.1)
[2021-07-09] MEDS: INSULIN LISPRO 100 UNIT/ML SUBCUT SCH ×4 (07:58→22:19)
[2021-07-09] MEDS ORDERED: SODIUM POLYSTYRENE SULFATE 15 GM/60 ML BOTTLE PO ONE (09:34)
[2021-07-09] MEDS ORDERED: NAFCILLIN 2,000 MG in SODIUM CHLORIDE 0.9% 100 ML IV SCH (10:00)
[2021-07-09] MEDS: ASCORBIC ACID 500 MG TABLET PO SCH ×2 (10:05→21:35)
[2021-07-09] MEDS: ASPIRIN EC 81 MG TABLET PO SCH (10:05)
[2021-07-09] MEDS: PANTOPRAZOLE 40 MG TABLET PO SCH ×2 (10:05→21:35)
[2021-07-09] MEDS: DILTIAZEM CD 120 MG CAPSULE PO SCH (10:05)
[2021-07-09] MEDS: carvediloL 25 MG TABLET PO SCH ×2 (10:06→21:35)
[2021-07-09] MEDS: DOXYCYCLINE HYCLATE INJ 100 MG in SODIUM CHLORIDE 0.9% 100 ML IV SCH ×2 (10:11→21:37)
[2021-07-09] MEDS: ceFAZolin 2,000 MG/50 ML DUPLEX IV SCH ×2 (11:15→17:11)
[2021-07-09] MEDS: cefTRIAXone 1,000 MG in SODIUM CHLORIDE 0.9% 100 ML IV SCH (11:15)
[2021-07-09] MEDS: RIVAROXABAN 15 MG TABLET PO SCH (17:11)
[2021-07-09] MEDS ORDERED: NITROGLYCERIN SL 0.4 MG TABLET SL PRN (23:41)
[2021-07-09] MEDS ORDERED: MORPHINE 2 MG/1 ML SYRINGE IV PRN (23:42)
[2021-07-10] MEDS: ceFAZolin 2,000 MG/50 ML DUPLEX IV SCH ×3 (04:47→17:26)
[2021-07-10 06:02] LABS: Basophils % 0.4 % (0.0-0.8); Eosinophils # 0.2 10*3/uL (0.0-0.87); Eosinophils % 1.9 % (0.00-10.9); Hematocrit 33.3 VOL% (35.7-47.0); Hemoglobin 9.8 GM/DL (12.0-16.0); Immature Granulocytes % 0.5 %; Immature Granulocytes Absolute 0.05 #; Lymphocytes # 2.4 10*3/uL (1.4-4.0); Lymphocytes % 24.5 % (21.3-54.2); Mean Corpuscular HGB Conc 29.4 GM/DL (32-36); Mean Corpuscular Volume 93.3 FL (87-102); Mean Platelet Volume 11.4 FL (9.6-12.0); Monocytes % 9.3 % (1.7-12.7); Neutrophils % 63.4 % (38.7-73.9); Platelet Count 198 T/CUMM (130-400); Red Blood Count 3.57 MC/CUMM (3.8-5.5); Red Cell Distribution Width 16.9 % (9.3-17.3); White Blood Count 9.9 T/CUMM (4-12)
[2021-07-10 06:36] LABS: Calcium 8.7 MG/DL (8.5-10.1); Osmolality,Calculated 301.5 MOS/KG (273-304); Potassium 5.4 MMOL/L (3.5-5.1)
[2021-07-10] MEDS ORDERED: SODIUM POLYSTYRENE SULFATE 15 GM/60 ML BOTTLE PO ONE (08:29)
[2021-07-10] MEDS: INSULIN LISPRO 100 UNIT/ML SUBCUT SCH ×4 (09:45→21:28)
[2021-07-10] MEDS: ASPIRIN EC 81 MG TABLET PO SCH (09:54)
[2021-07-10] MEDS: carvediloL 25 MG TABLET PO SCH ×2 (09:54→21:27)
[2021-07-10] MEDS: PANTOPRAZOLE 40 MG TABLET PO SCH (09:54)
[2021-07-10] MEDS: ASCORBIC ACID 500 MG TABLET PO SCH ×2 (09:54→21:28)
[2021-07-10] MEDS: DILTIAZEM CD 120 MG CAPSULE PO SCH (09:54)
[2021-07-10] MEDS: DOXYCYCLINE HYCLATE INJ 100 MG in SODIUM CHLORIDE 0.9% 100 ML IV SCH ×2 (09:54→21:27)
[2021-07-10] MEDS ORDERED: PRILOSEC 40 MG PO SCH (10:12)
[2021-07-10] MEDS ORDERED: ALUMINUM/MAGNES/SIMETH MAX STR 30 ML UDCUP PO PRN (10:20)
[2021-07-10 15:12] LABS: Calcium 8.9 MG/DL (8.5-10.1); Osmolality,Calculated 301.7 MOS/KG (273-304); Potassium 5.4 MMOL/L (3.5-5.1)
[2021-07-10] MEDS: RIVAROXABAN 15 MG TABLET PO SCH ×2 (15:34→16:00)
[2021-07-10] MEDS: ursodioL 300 MG CAPSULE PO SCH (21:28)
[2021-07-11] MEDS: ceFAZolin 2,000 MG/50 ML DUPLEX IV SCH (01:45)
[2021-07-11 08:55] LABS: Basophils % 0.3 % (0.0-0.8); Eosinophils # 0.2 10*3/uL (0.0-0.87); Eosinophils % 2.2 % (0.00-10.9); Hematocrit 33.6 VOL% (35.7-47.0); Hemoglobin 9.9 GM/DL (12.0-16.0); Immature Granulocytes % 0.3 %; Immature Granulocytes Absolute 0.03 #; Lymphocytes # 1.7 10*3/uL (1.4-4.0); Lymphocytes % 18.5 % (21.3-54.2); Mean Corpuscular HGB Conc 29.5 GM/DL (32-36); Mean Corpuscular Volume 92.8 FL (87-102); Mean Platelet Volume 11.5 FL (9.6-12.0); Monocytes % 8.4 % (1.7-12.7); Neutrophils % 70.3 % (38.7-73.9); Platelet Count 206 T/CUMM (130-400); Red Blood Count 3.62 MC/CUMM (3.8-5.5); White Blood Count 8.9 T/CUMM (4-12)
[2021-07-11 09:11] LABS: Osmolality,Calculated 298.8 MOS/KG (273-304); Potassium 5.5 MMOL/L (3.5-5.1)
[2021-07-11] MEDS: ursodioL 300 MG CAPSULE PO SCH ×3 (09:59→21:24)
[2021-07-11] MEDS: ASPIRIN EC 81 MG TABLET PO SCH ×2 (10:00→10:25)
[2021-07-11] MEDS: DILTIAZEM CD 120 MG CAPSULE PO SCH ×2 (10:01→10:25)
[2021-07-11] MEDS: carvediloL 25 MG TABLET PO SCH ×3 (10:01→21:24)
[2021-07-11] MEDS: ASCORBIC ACID 500 MG TABLET PO SCH ×3 (10:01→21:24)
[2021-07-11] MEDS: ATORVASTATIN 20 MG TABLET PO SCH ×2 (10:02→10:25)
[2021-07-11] MEDS: MONTELUKAST 10 MG TABLET PO SCH ×2 (10:02→10:25)
[2021-07-11] MEDS: INSULIN LISPRO 100 UNIT/ML SUBCUT SCH ×5 (10:03→21:24)
[2021-07-11] MEDS: DOXYCYCLINE HYCLATE INJ 100 MG in SODIUM CHLORIDE 0.9% 100 ML IV SCH (10:04)
[2021-07-11] MEDS: LIOTHYRONINE 25 MCG TABLET PO SCH (10:07)
[2021-07-11] MEDS: SODIUM POLYSTYRENE SULFATE 15 GM/60 ML BOTTLE PO SCH ×2 (12:41→22:04)
[2021-07-11] MEDS ORDERED: FUROSEMIDE 20 MG/2 ML VIAL IV ONE (14:03)
[2021-07-11] MEDS: PIPERACILLIN/TAZOBACTAM 3,375 MG in SODIUM CHLORIDE 0.9% 100 ML IV SCH ×2 (15:48→22:22)
[2021-07-11] MEDS ORDERED: FLUCONAZOLE 200 MG TABLET PO ONE (18:02)
[2021-07-11] MEDS: RIVAROXABAN 15 MG TABLET PO SCH (18:20)
[2021-07-11] MEDS: PRILOSEC 40 MG PO SCH (18:20)
[2021-07-11] MEDS: PANTOPRAZOLE 40 MG TABLET PO SCH ×2 (21:24→22:04)
[2021-07-12] MEDS: PRILOSEC 40 MG PO SCH ×2 (06:02→15:55)
[2021-07-12] MEDS: PIPERACILLIN/TAZOBACTAM 3,375 MG in SODIUM CHLORIDE 0.9% 100 ML IV SCH ×3 (06:02→22:00)
[2021-07-12 06:30] LABS: Basophils # 0.1 10*3/uL (0.0-0.2); Basophils % 0.6 % (0.0-0.8); Eosinophils # 0.2 10*3/uL (0.0-0.87); Eosinophils % 2.6 % (0.00-10.9); Hematocrit 31.4 VOL% (35.7-47.0); Hemoglobin 9.2 GM/DL (12.0-16.0); Immature Granulocytes % 0.5 %; Immature Granulocytes Absolute 0.04 #; Lymphocytes # 1.9 10*3/uL (1.4-4.0); Lymphocytes % 20.9 % (21.3-54.2); Mean Corpuscular HGB Conc 29.3 GM/DL (32-36); Mean Corpuscular Volume 91.8 FL (87-102); Mean Platelet Volume 11.4 FL (9.6-12.0); Monocytes % 10.9 % (1.7-12.7); Neutrophils % 64.5 % (38.7-73.9); Platelet Count 223 T/CUMM (130-400); Red Blood Count 3.42 MC/CUMM (3.8-5.5); Red Cell Distribution Width 17.4 % (9.3-17.3); White Blood Count 8.9 T/CUMM (4-12)
[2021-07-12 06:54] LABS: Calcium 9.1 MG/DL (8.5-10.1); Osmolality,Calculated 298.7 MOS/KG (273-304)
[2021-07-12] MEDS: INSULIN LISPRO 100 UNIT/ML SUBCUT SCH ×4 (09:23→21:00)
[2021-07-12] MEDS ORDERED: FUROSEMIDE 20 MG/2 ML VIAL IV ONE (14:10)
[2021-07-12] MEDS: DILTIAZEM CD 120 MG CAPSULE PO SCH (14:50)
[2021-07-12] MEDS: ASPIRIN EC 81 MG TABLET PO SCH (14:50)
[2021-07-12] MEDS: carvediloL 25 MG TABLET PO SCH ×2 (14:50→20:54)
[2021-07-12] MEDS: ursodioL 300 MG CAPSULE PO SCH ×2 (14:50→20:55)
[2021-07-12] MEDS: ATORVASTATIN 20 MG TABLET PO SCH (14:50)
[2021-07-12] MEDS: MONTELUKAST 10 MG TABLET PO SCH (14:51)
[2021-07-12] MEDS: PANTOPRAZOLE 40 MG TABLET PO SCH ×2 (14:51→20:54)
[2021-07-12] MEDS: ASCORBIC ACID 500 MG TABLET PO SCH ×2 (14:51→20:55)
[2021-07-12] MEDS ORDERED: DILTIAZEM 50 MG/10 ML VIAL IV ONE (14:55)
[2021-07-12] MEDS: LIOTHYRONINE 25 MCG TABLET PO SCH (15:30)
[2021-07-13 05:39] LABS: Basophils % 0.4 % (0.0-0.8); Eosinophils # 0.2 10*3/uL (0.0-0.87); Eosinophils % 1.9 % (0.00-10.9); Hematocrit 31.3 VOL% (35.7-47.0); Hemoglobin 9.1 GM/DL (12.0-16.0); Immature Granulocytes % 0.4 %; Immature Granulocytes Absolute 0.04 #; Lymphocytes # 2.5 10*3/uL (1.4-4.0); Lymphocytes % 25.9 % (21.3-54.2); Mean Corpuscular HGB Conc 29.1 GM/DL (32-36); Mean Corpuscular Volume 91.8 FL (87-102); Mean Platelet Volume 10.9 FL (9.6-12.0); Monocytes % 13.4 % (1.7-12.7); Platelet Count 209 T/CUMM (130-400); Red Blood Count 3.41 MC/CUMM (3.8-5.5); Red Cell Distribution Width 17.8 % (9.3-17.3); White Blood Count 9.5 T/CUMM (4-12)
[2021-07-13] MEDS: PIPERACILLIN/TAZOBACTAM 3,375 MG in SODIUM CHLORIDE 0.9% 100 ML IV SCH ×3 (05:49→23:20)
[2021-07-13 06:01] LABS: Osmolality,Calculated 300.5 MOS/KG (273-304); Potassium 5.1 MMOL/L (3.5-5.1)
[2021-07-13] MEDS: INSULIN LISPRO 100 UNIT/ML SUBCUT SCH ×4 (08:41→21:59)
[2021-07-13] MEDS: DILTIAZEM CD 120 MG CAPSULE PO SCH (08:42)
[2021-07-13] MEDS: ursodioL 300 MG CAPSULE PO SCH ×2 (08:42→22:00)
[2021-07-13] MEDS: ATORVASTATIN 20 MG TABLET PO SCH (08:42)
[2021-07-13] MEDS: MONTELUKAST 10 MG TABLET PO SCH (08:42)
[2021-07-13] MEDS: PANTOPRAZOLE 40 MG TABLET PO SCH ×2 (08:43→21:59)
[2021-07-13] MEDS: carvediloL 25 MG TABLET PO SCH ×2 (08:43→21:59)
[2021-07-13] MEDS: ASPIRIN EC 81 MG TABLET PO SCH (08:43)
[2021-07-13] MEDS: ASCORBIC ACID 500 MG TABLET PO SCH ×2 (08:43→22:00)
[2021-07-13] MEDS ORDERED: FLUCONAZOLE 100 MG TABLET PO SCH (09:00)
[2021-07-13] MEDS: PRILOSEC 40 MG PO SCH ×2 (09:52→16:35)
[2021-07-13] MEDS: LIOTHYRONINE 25 MCG TABLET PO SCH (09:53)
[2021-07-13] MEDS: METOPROLOL TARTRATE 5 MG/5 ML VIAL IV PRN (10:10)
[2021-07-13] MEDS: FUROSEMIDE 80 MG TABLET PO SCH (16:20)
[2021-07-13] MEDS: RIVAROXABAN 15 MG TABLET PO SCH (17:12)
[2021-07-14 05:35] LABS: Basophils # 0.1 10*3/uL (0.0-0.2); Basophils % 0.5 % (0.0-0.8); Eosinophils # 0.3 10*3/uL (0.0-0.87); Eosinophils % 2.6 % (0.00-10.9); Hematocrit 31.9 VOL% (35.7-47.0); Hemoglobin 9.5 GM/DL (12.0-16.0); Immature Granulocytes % 0.5 %; Immature Granulocytes Absolute 0.05 #; Lymphocytes # 2.7 10*3/uL (1.4-4.0); Lymphocytes % 27.1 % (21.3-54.2); Mean Corpuscular HGB Conc 29.8 GM/DL (32-36); Mean Corpuscular Volume 93.8 FL (87-102); Mean Platelet Volume 10.9 FL (9.6-12.0); Monocytes % 10.7 % (1.7-12.7); Neutrophils % 58.6 % (38.7-73.9); Platelet Count 202 T/CUMM (130-400); Red Cell Distribution Width 17.7 % (9.3-17.3); White Blood Count 9.9 T/CUMM (4-12)
[2021-07-14 05:51] LABS: Calcium 8.8 MG/DL (8.5-10.1); Osmolality,Calculated 303.3 MOS/KG (273-304); Potassium 5.2 MMOL/L (3.5-5.1)
[2021-07-14] MEDS: PIPERACILLIN/TAZOBACTAM 3,375 MG in SODIUM CHLORIDE 0.9% 100 ML IV SCH ×2 (06:35→15:00)
[2021-07-14] MEDS ORDERED: SODIUM POLYSTYRENE SULFATE 15 GM/60 ML BOTTLE PO ONE ×2 (09:05→14:17)
[2021-07-14] MEDS ORDERED: FUROSEMIDE 20 MG/2 ML VIAL IV ONE (09:06)
[2021-07-14] MEDS: INSULIN LISPRO 100 UNIT/ML SUBCUT SCH ×3 (09:07→16:32)
[2021-07-14] MEDS: carvediloL 25 MG TABLET PO SCH (09:10)
[2021-07-14] MEDS: ASPIRIN EC 81 MG TABLET PO SCH (09:10)
[2021-07-14] MEDS: ursodioL 300 MG CAPSULE PO SCH (09:11)
[2021-07-14] MEDS: ASCORBIC ACID 500 MG TABLET PO SCH (09:11)
[2021-07-14] MEDS: ATORVASTATIN 20 MG TABLET PO SCH (09:12)
[2021-07-14] MEDS: LIOTHYRONINE 25 MCG TABLET PO SCH (09:12)
[2021-07-14] MEDS: DILTIAZEM CD 120 MG CAPSULE PO SCH (09:12)
[2021-07-14] MEDS: MONTELUKAST 10 MG TABLET PO SCH (09:12)
[2021-07-14] MEDS: PRILOSEC 40 MG PO SCH ×2 (09:13→16:33)
[2021-07-14] MEDS: PANTOPRAZOLE 40 MG TABLET PO SCH (09:14)
[2021-07-14] MEDS: FUROSEMIDE 80 MG TABLET PO SCH (10:08)
[2021-07-14] MEDS ORDERED: BENZOCAINE/MENTHOL LOZENGE 18/BOX PO PRN (10:26)
[2021-07-14 13:40] LABS: Calcium 9.1 MG/DL (8.5-10.1); Osmolality,Calculated 305.4 MOS/KG (273-304); Potassium 5.2 MMOL/L (3.5-5.1)
[2021-07-14 14:07] VITALS: BP 131/82
[2021-07-14] MEDS: METOPROLOL TARTRATE 5 MG/5 ML VIAL IV PRN (14:48)
[2021-07-14 16:01] LABS: H pylori Specimen source STOOL; Helicobacter pylori Result Not Detected
[2021-07-14] MEDS: RIVAROXABAN 15 MG TABLET PO SCH (16:32)
[2021-07-15] MEDS ORDERED: LORATADINE 10 MG TABLET PO SCH (09:00)
[2021-07-15] MEDS ORDERED: FLUTICASONE 50 MCG NASAL SPRAY 16 GM BOTTLE BOTH NARES SCH (10:27)
[2021-07-15] MEDS ORDERED: SODIUM ZIRCONIUM CYCLOSILICATE 10 GM PACK PO SCH (15:06)
== END 2021-07-14 20:18 | disposition home health service (06) | DRG 308 ==
LOC: N.ED 14:45 → SUATTDRO 17:49 → N.EDINP 17:49 → N.TELEN 20:13
PROVIDERS: ADMIT Internal Medicine; ATTEND Internal Medicine